=== PATIENT | male | born 1965 | race Caucasian/White ===

== ENCOUNTER 2021-09-01 17:41 | Inpatient (IN) ==
[2021-09-01] MEDS ORDERED: PANTOprazole 80 MG in DEXTROSE 5% 100 ML IV ONE (17:57)
[2021-09-01] MEDS ORDERED: PANTOprazole 80 MG in DEXTROSE 5% 100 ML IV STA (17:57)
[2021-09-01] MEDS ORDERED: PANTOPRAZOLE BOLUS/DRIP 1 EA IV STA (17:57)
--- NOTE | 2021-09-01 18:06 | Emergency Department Note ---
Impression & Plan Upper gastrointestinal hemorrhage, Melena, Anemia, Esophageal varices ED Provider Note NAME: RIP LYN AGE: 56 SEX: M : 1965 ARRIVES VIA: Ambulance INFORMANT: Patient, EMS ED PROVIDER(S): Billy Sosa DO CHIEF COMPLAINT: GI bleeding HPI: The patient is a 56-year-old male who has a history of cirrhosis of the li justice secondary to chronic alcohol use who presented to the emergency department for an evaluation of GI bleeding. The patient states he started having symptoms earlier in the day. He denies having any chest pain but does complain of epigastric pain and discomfort. He notices black stool but he also had multiple episodes of emesis which was positive for a maroon dark emesis. The patient denies having any fevers. He denies having any lower extremity swelling or pain. He states his symptoms were moderate to severe. The patient arrived via ALS. He was noted to be tachycardic but not hypotensive. The patient has never had a blood transfusion before. He states he is not been drinking alcohol and is currently in the work-up in process of being put on a transplant list for his liver failure. ROS: See above HPI for pertinent positives & negatives. A total of 10 systems reviewed and were otherwise negative. PAST MEDICAL HISTORY: See Below PAST SURGICAL HISTORY: See Below FAMILY HISTORY: See Below SOCIAL HISTORY: See Below HOME MEDICATIONS: See Below ALLERGIES: See Below VITALS: See Below PHYSICAL EXAMINATION: GENERAL: The patient is awake and alert. He is very anxious appearing and appears to be pale. EYES: The conjunctivae are pale. The pupils are round and reactive. EARS, NOSE, MOUTH AND THROAT: The nose is without any evidence of any deformity. NECK: The neck is nontender and supple. RESPIRATORY: Normal respiratory effort is noted there is no evidence of wheezing rhonchi or rales CARDIOVASCULAR: Regular rate and rhythm noted there no murmurs rubs or gallops normal S1 normal S2. GASTROINTESTINAL: Abdomen was soft and distended. There is diffuse tenderness to palpation but no guarding rigidity. Rectal exam revealed black stool which was strongly heme positive. MUSCULOSKELETAL/EXTREMITIES: There is no evidence of gross deformity full range of motion is noted in the hips and shoulders. SKIN: Trace pedal edema was noted bilaterally. Skin was cool and dry. NEUROLOGIC: Patient is awake alert and oriented x3 strength is symmetric p atellar reflexes are 2+ bilaterally MEDICAL DECISION MAKING: The patient is a 56-year-old male who presented to the emergency department for an evaluation of upper GI bleeding. The patient's noticed episodes of coffee- ground emesis as well as dark stool from below. The patient was treated with IV fluids and IV antiemetics. He was also treated with IV antibiotics and Protonix in the emergency department. He was reevaluated multiple times. Hemoglobin was not critical but was low compared to his previous. His INR was elevated from 1.3-1.6 today. I discussed the patient's laboratory and radiographic studies with him. I also discussed his case with the on-call supervisor [employer] as well as the on-call [facility] hospitalist. They have agreed to evaluate the patient for further management and disposition. Radiographic studies were ordered. Triage Nursing notes reviewed. Prior medical records reviewed Vital Signs: reviewed and remarkable for tachycardia. Differential diagnosis: Diverticulosis, AVM, coagulopathy, colitis, inflammatory bowel disease, malignancy, Vero-Masters tear, esophagitis, peptic ulcer disease, variceal bleed, gastritis, epistaxis, fissure, hemorrhoids, as well as other pathologies. ER treatment provided: See below Diagnostics interpreted by me: ECG: EKG was obtained in the emergency department. My interpretation is sinus tachycardia [address] segment depressions were noted. This was compared to a tracing from November 13, 2019. The ST segment abnormalities are new. Cardiac Monitoring: An order was placed for continuous cardiac monitoring. The monitor shows a rate of 97 bpm with sinus rhythm. Laboratory studies: As stated above and show below. Imaging studies: See below Consultation(s): I discussed this case with Dr. Fay on-call for gastroenterology. I discussed this case with Dr. Brown who is on-call for the [facility] hospitalist group. ED COURSE: Procedures: none Critical Care: I have personally spent greater than 55 minutes of critical care time in the direct management of this patient. This includes bedside care, interpretation of diagnostic studies, and testing, discussion with consultants, patient, and family members, and other required patient management activities. This 55 mi nutes is in excess of all separately billable procedures. Past Med/Surg History Medical History Anemia Back pain ARTHRITIS PER PT Chews tobacco Cirrhosis of liver Fluid retention LEGS AND ABDOMEN High blood pressure HX, CURRENTLY LOW BLOOD PRESSURE PER PT History of COVID-2020 Renal insufficiency Surgical History No history of previous surgery Social History Smoking Status: Former smoker Tobacco Type: Cigarettes Do You Dip or Chew Tobacco: No; Hx Alcohol Use: No Hx Substance Use: Yes Substance Use Type Other:: MEDICAL MARIJUANA CARD (INSTRUCTED TO BRING CARD/CURRENTLY ) Preferred Language: Georgian Communication Ability: Effective Forger Helper Required: No Beliefs That Will Affect Care: None Current Living Situation: Alone Other Information That Helps Us Care for You: No Feels Safe at Home: Yes Safety Concerns: Feels Safe At This Time Assistive Devices: Glasses Allergies Allergies Allergy/AdvReac Type Severity Reaction Status Date / Time No Known Allergies Allergy Verified 09/01/21 20:04 Home Meds Home Medications Medication Instructions Recorded Confirmed furosemide 40 mg tablet 40 mg PO DAILY 09/01/21 09/01/21 ibuprofen 200 mg tablet (Advil) 600 - 800 mg PO Q8 PRN 09/01/21 09/01/21 spironolactone 100 mg tablet 100 mg PO DAILY 09/01/21 09/01/21 Results & Data (ED) Vital Signs Vital Signs - 24 hr 09/01/21 17:51 Temperature 36.9 C Temperature Source Oral Pulse Rate 97 H Respiratory Rate 24 Respiratory Effort / Characteristics Non-Labored Spontaneous Respiratory Depth Normal Respiratory Pattern Regular Blood Pressure 125/85 Blood Pressure Mean 98 Blood Pressure Position Sitting Pulse Oximetry 98 Oxygen Delivery Method Room Air Sepsis Recent Fever Within 48 Hours No Sepsis New/Unexplained Change in Mental Status N/A Sepsis Action Taken by Nursing No Action Required Home Medications Current Medication List: was personally reviewed by me Laboratory Data Attestation: I reviewed the patient's lab results. Result diagrams: 09/02/21 10:09 09/02/21 10:09 Lab Results 09/01/21 09/01/21 Range/Units 18:02 18:30 SARS-CoV-2, RNA, NAAT NEGATIVE (NEGATIVE) Blood Type A Positive Antibody Screen NEGATIVE Crossmatch See Detail Administered Medications Octreotide Acetate 500 mcg/ (Dextrose) 100.5 mls @ 10.05 mls/hr IV .Q10H DARREN Stop: 10/01/21 19:59 Last Admin: 09/02/21 04:52 Dose: 50 mcg/hr, 10.1 mls/hr Documented by: [id number] Infusion: 09/02/21 04:52 Dose: 50 mcg/hr, 10.1 mls/hr Documented by: [id number] Admin: 09/01/21 21:05 Dose: 50 mcg/hr, 10.1 mls/hr Documented by: [id number] Pantoprazole Sodium 40 mg/ (Syringe) 10 mls @ 5 mls/min IV BID@0900,2100 DARREN Stop: 10/02/21 09:59 Last Admin: 09/02/21 11:11 Dose: 5 mls/min Documented by: [id number] Ondansetron HCl (Ondansetron Inj 2 Mg/Ml 2 Ml Vial) 4 mg IV Q6H PRN PRN Reason: Nausea Stop: 10/01/21 21:29 Last Admin: 09/01/21 21:27 Dose: 4 mg Documented by: [id number] Discontinued Medications Pantoprazole Sodium 80 mg/ (Dextrose) 100 mls @ 400 mls/hr IV ONE STA Stop: 09/01/21 18:11 Last Infusion: 09/01/21 19:29 Dose: 0 mls/hr Documented by: [id number] Admin: 09/01/21 18:28 Dose: 400 mls/hr Documented by: [id number] Pantoprazole Sodium (Protonix Bolus/Drip) 0 mls @ 1 mls/hr IV ONE STA Stop: 09/01/21 17:58 Last Infusion: 09/01/21 19:31 Dose: 0 mls/hr Documented by: [id number] Admin: 09/01/21 19:25 Dose: 1 mls/hr Documented by: [id number] Pantoprazole Sodium 40 mg/ (Dextrose) 100 mls @ 20 mls/hr IV Q5H DARREN Stop: 10/01/21 18:14 Last Infusion: 09/01/21 23:45 Dose: 0 mg/hr, 0 mls/hr Documented by: [id number] Admin: 09/01/21 23:14 Dose: 8 mg/hr, 20 mls/hr Documented by: [id number] Infusion: 09/01/21 23:14 Dose: 8 mg/hr, 20 mls/hr Documented by: [id number] Admin: 09/01/21 18:49 Dose: 8 mg/hr, 20 mls/hr Documented by: [id number] Piperacillin Sod/Tazobactam Sod (Zosyn) 4.5 gm in 120 mls @ 240 mls/hr IV NOW ONE Stop: 09/01/21 18:44 Last Infusion: 09/01/21 19:30 Dose: 0 mls/hr Documented by: [id number] Admin: 09/01/21 18:28 Dose: 240 mls/hr Documented by: [id number] Sodium Chloride (Nss 1000ml) 1,000 mls @ 999 mls/hr IV .Q1H1M ONE Stop: 09/01/21 19:45 Last Infusion: 09/01/21 20:12 Dose: 0 mls/hr Documented by: [id number] Admin: 09/01/21 19:24 Dose: 999 mls/hr Documented by: [id number] Octreotide Acetate 50 mcg/ (Syringe) 10 mls @ 3 mls/min IV NOW STA Stop: 09/01/21 20:53 Last Admin: 09/01/21 21:05 Dose: 3 mls/min Documented by: [id number] Piperacillin Sod/Tazobactam (Sod 3.375 gm/ Dextrose) 115 mls @ 28.75 mls/hr IV Q8H DARREN; Protocol Stop: 09/12/21 00:00 Last Admin: 09/02/21 08:22 Dose: 28.8 mls/hr Documented by: [id number] Infusion: 09/02/21 03:59 Dose: 0 mls/hr Documented by: [id number] Admin: 09/01/21 23:44 Dose: 28.8 mls/hr Documented by: [id number] Phytonadione 5 mg/ Dextrose 50.5 mls @ 101 mls/hr IV ONE ONE Stop: 09/01/21 21:44 Last Infusion: 09/01/21 22:00 Dose: 0 mls/hr Documented by: [id number] Admin: 09/01/21 21:22 Dose: 101 mls/hr Documented by: [id number] Magnesium Sulfate/Dextrose (Magnesium Sulfate / D5w) 1 gm in 100 mls @ 50 mls/hr IV Q2H DARREN Stop: 09/02/21 10:59 Last Admin: 09/02/21 10:10 Dose: 50 mls/hr Documented by: [id number] Infusion: 09/02/21 10:10 Dose: 50 mls/hr Documented by: [id number] Admin: 09/02/21 08:21 Dose: 50 mls/hr Documented by: [id number] Calcium Gluconate 2,000 mg/ (Dextrose) 70 mls @ 240 mls/hr IV NOW ONE Stop: 09/02/21 10:00 Last Admin: 09/02/21 10:10 Dose: 240 mls/hr Documented by: [id number] Ioversol (Optiray 320 100ml) 92 ml IV ONCE ONE Stop: 09/01/21 19:05 Last Admin: 09/01/21 19:04 Dose: 92 ml Documented by: [id number] Morphine Sulfate (Morphine Sulfate 4 Mg/Ml 1 Ml Carp\Vial) 4 mg IV NOW STA Stop: 09/01/21 18:59 Last Admin: 09/01/21 19:25 Dose: 4 mg Documented by: [id number] Ondansetron HCl (Ondansetron Inj 2 Mg/Ml 2 Ml Vial) 4 mg IV NOW STA Stop: 09/01/21 18:44 Last Admin: 09/01/21 19:25 Dose: 4 mg Documented by: [id number] Imaging Data Radiologist's Impression: Chest X-Ray 09/01/21 17:48 XR chest 1V portable CLINICAL HISTORY: GI bleed. Evaluate cardiopulmonary status. COMPARISON STUDY: 11/13/2019 TECHNIQUE: 1 view of the chest FINDINGS: Single frontal view of the chest demonstrates the cardiomediastinal silhouette to be within normal limits. The lungs are clear of alveolar opacities. There is no evidence for pleural effusion. There is no evidence for vascular congestion. There is no acute osseous pathology. IMPRESSION: 1. No acute cardiopulmonary disease. ACT 112: Negative or not required by law. Electronically signed by: Humberto Callejas M.D. 09/01/2021 7:03 PM Chest X-Ray 09/01/21 17:48 XR chest 1V portable CLINICAL HISTORY: GI bleed. Evaluate cardiopulmonary status. COMPARISON STUDY: 11/13/2019 TECHNIQUE: 1 view of the chest FINDINGS: Single frontal view of the chest demonstrates the cardiomediastinal silhouette to be within normal limits. The lungs are clear of alveolar opacities. There is no evidence for pleural effusion. There is no evidence for vascular congestion. There is no acute osseous pathology. IMPRESSION: 1. No acute cardiopulmonary disease. ACT 112: Negative or not required by law. Electronically signed by: Humberto Callejas M.D. 09/01/2021 7:03 PM Abdomen/Pelvis CT 09/01/21 18:36 CT abd pelvis IV con only CLINICAL HISTORY: GI bleed. Reported vomiting of blood COMPARISON STUDY: 11/13/2019 CT DOSE: 515.48 mGy.cm TECHNIQUE: Standard CT of the Abdomen and Pelvis was performed with IV contrast. A dose lowering technique was utilized adhering to the principles of ALARA. Contrast Volume: Optiray 320, 92 ml. The patient did not receive oral contrast. FINDINGS: Lung base: There has been interval development of a small right pleural effusion. Abdominal cavity and bowel: There is diffuse mucosal thickening present along the course of the entire colon from the cecum to the sigmoid colon. Mild pericolonic inflammatory changes are present throughout its course as well. Findings are characteristic of an infectious versus inflammatory colitis. There is no evidence for diverticula or diverticulitis. The stomach is grossly distended with liquid and food stuff. The fluid demonstrates increased attenuation most characteristic of active bleeding. The findings are characteristic of marked gastritis. Underlying ulcer cannot be excluded. The small bowel loops are normally placed within the abdomen and pelvis without evidence for dilatation or obstruction. There is a normal appendix in the right lower quadrant. There is no evidence for free air. There are now extensive gastric hilar varices. There is no gross ascites. Liver: The liver is again enlarged with a cirrhotic morphology. There is no evidence for enhancing mass lesion. Spleen: There is homogeneous attenuation of the splenic parenchyma. There is no enhancing mass lesion. There is now marked splenomegaly and splenic hilar varices. Pancreas: There is homogeneous attenuation of the pancreatic parenchyma. There is no evidence for mass lesion or peripancreatic fluid collection. Gall Bladder: The gallbladder is well distended with no evidence for intraluminal calculi, wall thickening or pericholecystic edema. Adrenal glands: The adrenal glands are normal in size and attenuation. There is no evidence for enhancing mass lesion. Kidneys: There is homogeneous attenuation of the renal parenchyma bilaterally. There is no evidence for renal calculus or hydronephrosis. There is no evidence for enhancing mass. Bladder: The bladder is within normal limits with no evidence for focal mass, calculus or diverticulum. : There is no evidence for pelvic mass or adenopathy. There is no evidence for pelvic ascites. Vasculature: There is no evidence for aneurysmal dilatation of the abdominal aorta. Atherosclerotic calcification is present. Osseous structures: There is no acute osseous pathology. Degenerative changes are seen within the spine. IMPRESSION: 1. Small right pleural effusion. 2. Diffuse mucosal thickening of the colon with pericolonic inflammatory changes characteristic of an infectious or inflammatory colitis. There is no evidence for diverticula or diverticulitis. 3. Marked distention of the stomach with liquid and food stuff. Increased attenuation fluid is present characteristic of active bleeding. The findings are characteristic of gastritis. Underlying ulcer cannot be excluded. 4. Cirrhosis of the liver, marked splenomegaly and marked gastric hilar and splenic varices. ACT 112: Negative or not required by law. Electronically signed by: Humberto Callejas M.D. 09/01/2021 7:32 PM Discharge Plan Visit Data Chief Complaint: GI Bleed ED Provider: Billy Sosa Discharge Problem: Upper gastrointestinal hemorrhage, Melena, Anemia, Esophageal varices Patient Disposition: Admitted As Inpatient Discharge Instructions Interventions: ED Discharge Assessment Last Done: 09/01/21 20:52 Discharge Problem: Anemia Qualifiers: Anemia type: unspecified type Qualified Code(s): D64.9 - Anemia, unspecified Esophageal varices Qualifiers: Esophageal varices type: unspecified type Esophageal varices bleeding: with bleeding Qualified Code(s): I85.01 - Esophageal varices with bleeding
[2021-09-01 18:12] LABS: Hematocrit (blood only) 27.3 % (42-52); Hemoglobin 9.3 g/dL (14.0-18.0); Mean Corpuscular Hemoglobin 33.2 pg (25-34); Mean Corpuscular Hgb Conc 34.1 g/dL (32-36); Mean Corpuscular Volume 97.5 fL (80-100); Mean Platelet Volume 10.9 fL (7.4-10.4); Platelet Count 206 K/uL (130-400); RDW Coefficient of Variation 16.7 % (11.5-14.5); RDW Standard Deviation 59.1 fL (36.4-46.3); White Blood Count 17.44 K/uL (4.8-10.8)
[2021-09-01] MEDS ORDERED: PIPERACILLIN/TAZOBACTAM 4.5 GM/120 ML BAG IV ONE (18:15)
[2021-09-01 18:31] LABS: Acanthocytes 1+; Basophils # (auto) 0.01 K/uL (0-0.2); Basophils % (auto) 0.1 %; Echinocytes 1+; Eosinophils # (auto) 0.01 K/uL (0-0.5); Eosinophils % (auto) 0.1 %; Immature Granulocytes % (auto) 0.6 %; Lymphocytes # (auto) 0.97 K/uL (1.2-3.4); Lymphocytes % (auto) 5.6 %; Monocytes # (auto) 0.66 K/uL (0.11-0.59); Monocytes % (auto) 3.8 %; Neutrophils # (auto) 15.69 K/uL (1.4-6.5); Neutrophils % (auto) 89.8 %; Ovalocytes 1+
[2021-09-01 18:33] LABS: INR 1.6 (0.9-1.1); Partial Thromboplastin Time 27.9 Seconds (21.0-31.0); Prothrombin Time 16.7 Seconds (9.0-12.0)
[2021-09-01 18:37] LABS: Albumin Globulin Ratio 0.9 (0.9-2); Albumin Level 3.3 gm/dl (3.4-5.0); Bilirubin,Total 4.6 mg/dl (0.2-1.0); Calcium 8.8 mg/dl (8.5-10.1); Creatinine Clr Calc Pharmacy 61.1 ml/min; Est GFR (African American) 56.7 ml/min; Est GFR (Non-African American) 48.9 ml/min; Globulin 3.5 gm/dl (2.5-4.0); Potassium 3.8 mmol/L (3.5-5.1); Total Protein 6.8 gm/dl (6.0-8.3)
[2021-09-01 18:39] LABS: Troponin I High Sensitivity 31.5 pg/ml (0-20)
[2021-09-01] MEDS ORDERED: ONDANSETRON INJ 2 MG/ML 2 ML VIAL IV STA (18:43)
[2021-09-01] MEDS ORDERED: SODIUM CHLORIDE 0.9% 1000ML 1,000 ML IV ONE (18:45)
[2021-09-01] MEDS: PANTOprazole 40 MG in DEXTROSE 5% 100 ML IV SCH ×2 (18:49→23:14)
[2021-09-01] MEDS ORDERED: MoRPHine SULFATE 4 MG/ML 1 ML CARP\\VIAL IV PRN (18:58)
[2021-09-01] MEDS ORDERED: MoRPHine SULFATE 4 MG/ML 1 ML CARP\\VIAL IV STA (18:58)
[2021-09-01] MEDS ORDERED: OPTIRAY 320 100ml IV ONE (19:04)
--- NOTE | 2021-09-01 19:04 | History & Physical Report ---
Date of Service September 01, 2021 Assessment & Plan (1) Upper gastrointestinal hemorrhage: Plan: UGI bleed acute active - Protonix bolus and drip - Octreotide bolus and drip - Recommendations from GI - place NGT - HGB level now - PRBC on hold - INR 1.6, fibrinogen added, platelet count 206 - Vitamin K 5mg IV redose if needed - FFP x 1 unit ordered - on no other blood thinners - Blatchford score 12 - Maintain at least 2 large bore IV - Airway control if vomiting occurs (2) Esophageal varices: Plan: As above - octreotide added - Continue Zosyn- can change to Rocephin (3) Cirrhosis: Plan: MELD 22 Child GORE 8 without encephalopathy hold diuretics at this time until hemodynamics proven with active bleeding - glucose checks AC/HS - hypoglycemic protocol - blood cultures History of Present Illness Primary Care Provider: MARTHA PCP 56 YOM with medical history of : Cirrhosis secondary to alcohol abuse, patient has been sober for > 1 year. Patient previously followed with [facility] for GI for workup for liver transplant. Patient has not had a EGD yet, but had Colonoscopy performed on . Patient comes in to the EMD today for onset of abdominal pain with vomiting of blood at ~ 0300 this morning and passing of some black stools as the day went on. The patient came to the EMD today via EMS. In the EMD the patient had routine blood work performed, type and cross performed, and CT of the abdomen and pelvis performed. His HGB level is 9.3- no recent level for comparison. He is complaining as well as severe abdominal pain from the umbilicus to epigastrium, but abdomen is soft. His CT scan is concerning for stomach distention with liquid and food stuff, likely consistent with active bleeding and gastritis without being able to exclude an ulceration, as well as marked gastric hilar and splenic varices. Dr. Fay has been in contact with multiple times with review of the imaging as well. Patient is currently on Protonix drip and bolus and will add octreotide on. Patient will be admitted to the ICU, we have multple units of blood products that are on hold for the patient. Will Keep NPO, recommendations from GI to place NGT, will place bah catheter. COVID test on admission is: NEGATIVE Allergies Allergy/AdvReac Type Severity Reaction Status Date / Time No Known Allergies Allergy Verified 09/01/21 20:04 Home Medications Medication Instructions Recorded Confirmed Type furosemide 40 mg tablet 40 mg PO DAILY 09/01/21 09/01/21 History ibuprofen 200 mg tablet (Advil) 600 - 800 mg PO Q8 PRN 09/01/21 09/01/21 History spironolactone 100 mg tablet 100 mg PO DAILY 09/01/21 09/01/21 History Past Med/Surg History Medical History Anemia Back pain ARTHRITIS PER PT Chews tobacco Cirrhosis of liver Fluid retention LEGS AND ABDOMEN High blood pressure HX, CURRENTLY LOW BLOOD PRESSURE PER PT History of COVID-2020 Renal insufficiency Surgical History No history of previous surgery Social History Smoking Status: Former smoker Tobacco Type: Cigarettes Do You Dip or Chew Tobacco: No; Hx Alcohol Use: No Hx Substance Use: Yes Substance Use Type Other:: MEDICAL MARIJUANA CARD (INSTRUCTED TO BRING CARD/CURRENTLY ) Preferred Language: Libyan Communication Ability: Effective Continuous Process Coffee Roaster Required: No Beliefs That Will Affect Care: None Current Living Situation: Alone Other Information That Helps Us Care for You: No Feels Safe at Home: Yes Safety Concerns: Feels Safe At This Time Assistive Devices: Glasses Review of Systems Review of Systems: REVIEW OF SYSTEMS: Constitutional: (+) chills, No fever, Eyes: No diplopia, no worsening or blurred vision ENT: normal hearing, no trouble swallowing Respiratory: No cough, sputum, dyspnea at rest or on exertion Cardiovascular: No chest pain, tightness or palpitations Abdomen: (+) abdominal pain, nausea, vomiting earlier in the day, NO diarrhea or constipation Musculoskeletal: No joint pain, calf pain, swelling Neurologic: No weakness, numbness/tingling, or balance problems Psychiatric: No anxiety or depression Skin: No rash or itch Physical Exam Physical Exam: PHYSICAL EXAM: General: awake, alert, Head: Normocephalic, atraumatic ENT: PERRL, EOMI, no pharyngeal exudate, mucous membranes dry Neuro: AAO x 3, speech clear and appropriate, strength intact bilaterally 5/5, sensation intact and equal all extremities and dermatomes, no pronator drift Chest: equal rise and fall of the chest, no accessory muscle use, no heaves or thrills, Clear to auscultation, on room air, Cardiac: Regular rate and rhythm, telemetry reviewed-NSR no ectopy, skin warm dry, cap refill 3 seconds, peripheral pulses +2 no JVD, no murmur, peripheral pulses strong GI: hyperactive bowel sounds, tenderness with deep palpation to left lower quad, epgastrum sof t and no pain with deep palpation : Spontaneously voiding, no pain, no CVA tenderness,- place bah Extremities: Normal inspection, no peripheral edema or erythema, calfs nontender to palpation Psych: Normal mood and affect Skin: no rash or erythema Results & Data Results & Data ([facility]) Vital Signs (Past 12 Hours) Vital Signs Temp Pulse Resp BP Pulse Ox 09/01/21 17:51 36.9 C 97 H 24 125/85 98 Laboratory Results Laboratory Results - last 24 hr 09/01/21 09/01/21 09/01/21 18:02 18:30 Unknown WBC 17.44 H RBC 2.80 L Hgb 9.3 L Hct 27.3 L MCV 97.5 MCH 33.2 MCHC 34.1 RDW Std Deviation 59.1 H RDW Coeff of Diane 16.7 H Plt Count 206 MPV 10.9 H Immature Gran % (Auto) 0.6 Neut % (Auto) 89.8 Lymph % (Auto) 5.6 Troup % (Auto) 3.8 Eos % (Auto) 0.1 Baso % (Auto) 0.1 Neut # (Auto) 15.69 H Lymph # (Auto) 0.97 L Troup # (Auto) 0.66 H Eos # (Auto) 0.01 Baso # (Auto) 0.01 Immature Gran # (Auto) 0.10 H Ovalocytes 1+ Echinocytes 1+ Acanthocytes (Spur) 1+ PT INR APTT PTT Ratio Sodium Potassium Chloride Carbon Dioxide Anion Gap BUN Creatinine Est Cr Clr Drug Dosing Est GFR ( Amer) Est GFR (Non-Af Amer) BUN/Creatinine Ratio Glucose Calcium Total Bilirubin AST ALT Alkaline Phosphatase Troponin I High Sens Total Protein Albumin Globulin Albumin/Globulin Ratio Lipase SARS-CoV-2, RNA, NAAT NEGATIVE Blood Type A Positive Antibody Screen NEGATIVE Crossmatch See Detail 09/01/21 09/01/21 Unknown Unknown WBC RBC Hgb Hct MCV MCH MCHC RDW Std Deviation RDW Coeff of Diane Plt Count MPV Immature Gran % (Auto) Neut % (Auto) Lymph % (Auto) Troup % (Auto) Eos % (Auto) Baso % (Auto) Neut # (Auto) Lymph # (Auto) Troup # (Auto) Eos # (Auto) Baso # (Auto) Immature Gran # (Auto) Ovalocytes Echinocytes Acanthocytes (Spur) PT 16.7 H INR 1.6 H APTT 27.9 PTT Ratio 1.0 Sodium 137 Potassium 3.8 Chloride 99 Carbon Dioxide 12 L Anion Gap 26 H BUN 39 H Creatinine 1.56 H Est Cr Clr Drug Dosing 61.1 Est GFR ( Amer) 56.7 Est GFR (Non-Af Amer) 48.9 BUN/Creatinine Ratio 25.0 H Glucose 191 H Calcium 8.8 Total Bilirubin 4.6 H AST 30 ALT 19 Alkaline Phosphatase 76 Troponin I High Sens 31.5 H Total Protein 6.8 Albumin 3.3 L Globulin 3.5 Albumin/Globulin Ratio 0.9 Lipase 20 SARS-CoV-2, RNA, NAAT Blood Type Antibody Screen Crossmatch Diagnostic Findings Chest X-Ray 09/01/21 17:48 XR chest 1V portable CLINICAL HISTORY: GI bleed. Evaluate cardiopulmonary status. COMPARISON STUDY: 11/13/2019 TECHNIQUE: 1 view of the chest FINDINGS: Single frontal view of the chest demonstrates the cardiomediastinal silhouette to be within normal limits. The lungs are clear of alveolar opacities. There is no evidence for pleural effusion. There is no evidence for vascular congestion. There is no acute osseous pathology. IMPRESSION: 1. No acute cardiopulmonary disease. ACT 112: Negative or not required by law. Electronically signed by: Humberto Callejas M.D. 09/01/2021 7:03 PM Abdomen/Pelvis CT 09/01/21 18:36 CT abd pelvis IV con only CLINICAL HISTORY: GI bleed. Reported vomiting of blood COMPARISON STUDY: 11/13/2019 CT DOSE: 515.48 mGy.cm TECHNIQUE: Standard CT of the Abdomen and Pelvis was performed with IV contrast. A dose lowering technique was utilized adhering to the principles of ALARA. Contrast Volume: Optiray 320, 92 ml. The patient did not receive oral contrast. FINDINGS: Lung base: There has been interval development of a small right pleural effusion. Abdominal cavity and bowel: There is diffuse mucosal thickening present along the course of the entire colon from the cecum to the sigmoid colon. Mild pericolonic inflammatory changes are present throughout its course as well. Findings are characteristic of an infectious versus inflammatory colitis. There is no evidence for diverticula or diverticulitis. The stomach is grossly distended with liquid and food stuff. The fluid demonstrates increased attenuation most characteristic of active bleeding. The findings are characteristic of marked gastritis. Underlying ulcer cannot be excluded. The small bowel loops are normally placed within the abdomen and pelvis without evidence for dilatation or obstruction. There is a normal appendix in the right lower quadrant. There is no evidence for free air. There are now extensive gastric hilar varices. There is no gross ascites. Liver: The liver is again enlarged with a cirrhotic morphology. There is no evidence for enhancing mass lesion. Spleen: There is homogeneous attenuation of the splenic parenchyma. There is no enhancing mass lesion. There is now marked splenomegaly and splenic hilar varices. Pancreas: There is homogeneous attenuation of the pancreatic parenchyma. There is no evidence for mass lesion or peripancreatic fluid collection. Gall Bladder: The gallbladder is well distended with no evidence for intraluminal calculi, wall thickening or pericholecystic edema. Adrenal glands: The adrenal glands are normal in size and attenuation. There is no evidence for enhancing mass lesion. Kidneys: There is homogeneous attenuation of the renal parenchyma bilaterally. There is no evidence for renal calculus or hydronephrosis. There is no evidence for enhancing mass. Bladder: The bladder is within normal limits with no evidence for focal mass, calculus or diverticulum. : There is no evidence for pelvic mass or adenopathy. There is no evidence for pelvic ascites. Vasculature: There is no evidence for aneurysmal dilatation of the abdominal aorta. Atherosclerotic calcification is present. Osseous structures: There is no acute osseous pathology. Degenerative changes are seen within the spine. IMPRESSION: 1. Small right pleural effusion. 2. Diffuse mucosal thickening of the colon with pericolonic inflammatory changes characteristic of an infectious or inflammatory colitis. There is no evidence for diverticula or diverticulitis. 3. Marked distention of the stomach with liquid and food stuff. Increased attenuation fluid is present characteristic of active bleeding. The findings are characteristic of gastritis. Underlying ulcer cannot be excluded. 4. Cirrhosis of the liver, marked splenomegaly and marked gastric hilar and splenic varices. ACT 112: Negative or not required by law. Electronically signed by: Humberto Callejas M.D. 09/01/2021 7:32 PM Medications Administered Home Medications furosemide 40 mg tablet 40 mg PO DAILY 09/01/21 [History Confirmed 09/01/21] ibuprofen 200 mg tablet (Advil) 600 - 800 mg PO Q8 PRN 09/01/21 [History Confirmed 09/01/21] spironolactone 100 mg tablet 100 mg PO DAILY 09/01/21 [History Confirmed 09/01/21] Active Medications Pantoprazole Sodium 40 mg/ (Dextrose) 100 mls @ 20 mls/hr IV Q5H DARREN Stop: 10/01/21 18:14 Last Admin: 09/01/21 18:49 Dose: 8 mg/hr, 20 mls/hr Documented by: Sodium Chloride (Nss) 250 mls @ 15 mls/hr IV .[id number] PRN PRN Reason: For Transfusion Stop: 09/02/21 05:40 Octreotide Acetate 50 mcg/ (Syringe) 10 mls @ 3 mls/min IV ONE STA Stop: 09/01/21 19:51 Octreotide Acetate 500 mcg/ (Dextrose) 100.5 mls @ 10.05 mls/hr IV .Q10H DARREN Stop: 10/01/21 19:59 Miscellaneous (Stat Iv) 1 ea N/A NOW STA Stop: 09/01/21 19:49 Morphine Sulfate (Morphine Sulfate 4 Mg/Ml 1 Ml Carp\Vial) 4 mg IV Q30M PRN PRN Reason: Pain Stop: 09/15/21 18:57 Pantoprazole Sodium 40 mg/ (Dextrose) 100 mls @ 20 mls/hr IV Q5H DARREN Stop: 10/01/21 18:14 Last Admin: 09/01/21 18:49 Dose: 8 mg/hr, 20 mls/hr Documented by: [id number] Discontinued Medications Pantoprazole Sodium 80 mg/ (Dextrose) 100 mls @ 400 mls/hr IV ONE STA Stop: 09/01/21 18:11 Last Infusion: 09/01/21 19:29 Dose: 0 mls/hr Documented by: [id number] Admin: 09/01/21 18:28 Dose: 400 mls/hr Documented by: [id number] Pantoprazole Sodium (Protonix Bolus/Drip) 0 mls @ 1 mls/hr IV ONE STA Stop: 09/01/21 17:58 Last Infusion: 09/01/21 19:31 Dose: 0 mls/hr Documented by: [id number] Admin: 09/01/21 19:25 Dose: 1 mls/hr Documented by: [id number] Piperacillin Sod/Tazobactam Sod (Zosyn) 4.5 gm in 120 mls @ 240 mls/hr IV NOW ONE Stop: 09/01/21 18:44 Last Infusion: 09/01/21 19:30 Dose: 0 mls/hr Documented by: [id number] Admin: 09/01/21 18:28 Dose: 240 mls/hr Documented by: [id number] Sodium Chloride (Nss 1000ml) 1,000 mls @ 999 mls/hr IV .Q1H1M ONE Stop: 09/01/21 19:45 Last Admin: 09/01/21 19:24 Dose: 999 mls/hr Documented by: [id number] Ioversol (Optiray 320 100ml) 92 ml IV ONCE ONE Stop: 09/01/21 19:05 Last Admin: 09/01/21 19:04 Dose: 92 ml Documented by: [id number] Morphine Sulfate (Morphine Sulfate 4 Mg/Ml 1 Ml Carp\Vial) 4 mg IV NOW STA Stop: 09/01/21 18:59 Last Admin: 09/01/21 19:25 Dose: 4 mg Documented by: [id number] Ondansetron HCl (Ondansetron Inj 2 Mg/Ml 2 Ml Vial) 4 mg IV NOW STA Stop: 09/01/21 18:44 Last Admin: 09/01/21 19:25 Dose: 4 mg Documented by: [id number] ECG Additional Comments: EKG needs obtained Code Status & VTE Plan Code Status CODE: FULL VTE: SCDS, chemoprophylaxis on hold VTE Prophylaxis Plan VTE Prophylaxis will be ordered: Yes Supervising Physician Co-Signing Physician Notes Patient seen and examined, chart reviewed, case discussed with AMANDA Le and I agree with the assessment and plan as above. In brief, patient is a 56yo male with history of liver cirrhosis secondary to EtOH presenting with UGIB - hematemesis and coffee ground emesis. Patient had large volume of emesis in ER. Pale in appearance but remained HD stable On exam he is afebrile, tachycardic Skin - pale, no rash HEENT - MMM, Neck supple Heart - +S1/S2, regular, tachycardic, no m/r/g Lungs - CTA Abd - soft, NT/ND Ext - warm, well perfused Labs and images reviewed. Assessment/Plan - UGIB in patient with liver disease, unknown if varices - no h/o EGD in past -Admit to MICU -Maintain 2 large bore PIVs -Protonix gtt -Octreotide gtt -Monitor H/H - transfuse for ongoing bleed, symptomatic anemia, hgb <7 -Coagulopathy reversal in liver disease - Vitamin K 5mg IV x 1, FFP x 1 unit -GI consultation appreciated PG Care Time/CCT Total # of Minutes Spent Total Time Spent with Patient: Total time spent is greater than 50% in coordination of care (as documented) at patient's floor/unit and/or counseling patient: Coding Level of Care Code 70956 Initial Inpt Care Lvl 3 Diagnoses Upper gastrointestinal hemorrhage K92.2 Esophageal varices I85.01 Esophageal varices bleeding: with bleeding Esophageal varices type: unspecified type Cirrhosis K74.60 (1) Esophageal varices Esophageal varices bleeding: with bleeding Esophageal varices type: uns pecified type Qualified Code(s): I85.01 - Esophageal varices with bleeding
--- NOTE | 2021-09-01 19:34 | CT Scan Report ---
CT abd pelvis IV con only CLINICAL HISTORY: GI bleed. Reported vomiting of blood COMPARISON STUDY: 11/13/2019 CT DOSE: 515.48 mGy.cm TECHNIQUE: Standard CT of the Abdomen and Pelvis was performed with IV contrast. A dose lowering nurys hnique was utilized adhering to the principles of ALARA. Contrast Volume: Optiray 320, 92 ml. The patient did not receive oral contrast. FINDINGS: Lung base: There has been interval development of a small right pleural effusion. Abdominal cavity and bowel: There is diffuse mucosal thickening present along the course of the entir e colon from the cecum to the sigmoid colon. Mild pericolonic inflammatory changes are present throug hout its course as well. Findings are characteristic of an infectious versus inflammatory colitis. Th ere is no evidence for diverticula or diverticulitis. The stomach is grossly distended with liquid and food stuff. The fluid demonstrates increased attenua tion most characteristic of active bleeding. The findings are characteristic of marked gastritis. Und erlying ulcer cannot be excluded. The small bowel loops are normally placed within the abdomen and pelvis without evidence for dilatati on or obstruction. There is a normal appendix in the right lower quadrant. There is no evidence for f ree air. There are now extensive gastric hilar varices. There is no gross ascites. Liver: The liver is again enlarged with a cirrhotic morphology. There is no evidence for enhancing ma ss lesion. Spleen: There is homogeneous attenuation of the splenic parenchyma. There is no enhancing mass lesion . There is now marked splenomegaly and splenic hilar varices. Pancreas: There is homogeneous attenuation of the pancreatic parenchyma. There is no evidence for mas s lesion or peripancreatic fluid collection. Gall Bladder: The gallbladder is well distended with no evidence for intraluminal calculi, wall thick ening or pericholecystic edema. Adrenal glands: The adrenal glands are normal in size and attenuation. There is no evidence for enhan cing mass lesion. Kidneys: There is homogeneous attenuation of the renal parenchyma bilaterally. There is no evidence f or renal calculus or hydronephrosis. There is no evidence for enhancing mass. Bladder: The bladder is within normal limits with no evidence for focal mass, calculus or diverticulu m. : There is no evidence for pelvic mass or adenopathy. There is no evidence for pelvic ascites. Vasculature: There is no evidence for aneurysmal dilatation of the abdominal aorta. Atherosclerotic c alcification is present. Osseous structures: There is no acute osseous pathology. Degenerative changes are seen within the spi ne. IMPRESSION: 1. Small right pleural effusion. 2. Diffuse mucosal thickening of the colon with pericolonic inflammatory changes characteristic of an infectious or inflammatory colitis. There is no evidence for diverticula or diverticulitis. 3. Marked distention of the stomach with liquid and food stuff. Increased attenuation fluid is presen t characteristic of active bleeding. The findings are characteristic of gastritis. Underlying ulcer c annot be excluded. 4. Cirrhosis of the liver, marked splenomegaly and marked gastric hilar and splenic varices. ACT 112: Negative or not required by law. Electronically signed by: Humberto Callejas M.D. 09/01/2021 7:32 PM
[2021-09-01] MEDS ORDERED: SODIUM CHLORIDE 0.9% 250 ML IV PRN ×3 (19:40→21:01)
[2021-09-01] MEDS ORDERED: STAT IV STA (19:48)
[2021-09-01] MEDS ORDERED: OCTREOTIDE ACETATE 50 MCG in SYRINGE 9.5 ML IV STA (20:50)
[2021-09-01] MEDS ORDERED: GLUCOSE 40% GEL 15 GM TUBE PO PRN (21:01)
[2021-09-01] MEDS ORDERED: GLUCOSE 10 TABS/TUBE PO PRN (21:01)
[2021-09-01] MEDS ORDERED: CARBOHYDRATES FOR HYPOGLYCEMIA PO PRN (21:01)
[2021-09-01] MEDS ORDERED: ACETAMINOPHEN 325 MG TAB PO PRN (21:01)
[2021-09-01] MEDS ORDERED: DEXTROSE 50% 50 ML SYRINGE IV PRN (21:01)
[2021-09-01] MEDS ORDERED: GLUCAGON FOR INJ 1 MG VIAL SQ PRN (21:01)
[2021-09-01] MEDS: OCTREOTIDE ACETATE 500 MCG in DEXTROSE 5% 100 ML IV SCH (21:05)
[2021-09-01] MEDS ORDERED: PHYTONADIONE 5 MG in DEXTROSE 5% 50 ML IV ONE (21:15)
[2021-09-01] MEDS ORDERED: ONDANSETRON INJ 2 MG/ML 2 ML VIAL IV PRN ×2 (21:19→21:53)
--- NOTE | 2021-09-01 21:19 | Critical Care Consultation ---
Date of Consultation September 01, 2021 Assessment & Plan (1) Upper gastrointestinal hemorrhage: Impression: 56-year-old male with history of liver cirrhosis and varices presents to the ICU with active upper GI bleed and plan to undergo blood transfusion and emergent EGD this evening. Neuro - [facility] ICU: Negative Cardiac - Currently hemodynamically stable and normal sinus rhythm. Per conversation it appears the patient was having orthostatic syncope. Suspect this is likely from volume loss due to upper GI bleed. Currently transfusing 2 units RBCs and 1 FFP Continue hemodynamic monitoring in ICU. Continuous monitor on telemetry Respiratory - Lungs clear to auscultation. No history of pulmonary disease. Continuous monitoring pulse ox GI - Upper GI hemorrhageunsure of source at this time as patient has history of cirrhosis and varices -Continue Protonix and octreotide drip -Patient undergoing emergent EGD with GI this evening. Follow-up findings -NG tube to low intermittent wall suction -See transfusions below Cirrhosis/liver failure meld of 22. No encephalopathy -Follows with [facility] liver service. Currently undergoing work-up for liver transplant -Follow-up with GI for recommendations -Trend LFTs -Hold diuretics for now -Monitor RENAL/LYTES - Creatinine stable, monitor routine BMPs replete electrolytes as indicated - Foleystrict I's and O's ENDO - No history of diabetes or thyroid disease ICU hyperglycemic protocol HEME - Acute blood loss anemialikely blood loss anemia in setting of acute GI bleed. May also have chronic element in the setting of liver failure. -We will transfuse 2 units RBCs and 1 FFP as patient has continued to display active upper GI bleed with hematemesis. Also elevated INR of 1.6. Did receive 5 mg IV vitamin K -Trend H&H and transfuse as indicated. Follow-up fibrinogen and INR ID - Empiric coverage with Zosyn No clear indication for infectious process at this time. Trend fever curve LINES/IV ACCESS - Bilateral large-bore IVs x2 DVT PROPHYLAXIS - SCDs, hold on anticoagulation in the setting of active bleeding Thank you for allowing us to participate in the care of this patient. Please refer to my attending physician's documentation for any further recommendations. (2) Cirrhosis: (3) Anemia: (4) Renal insufficiency: (5) Melena: (6) Esophageal varices: (7) Alcoholic liver failure: (8) Acute blood loss anemia: History of Present Illness Attending Physician: Fidel Brown MD History of Present Illness Mr. Jacob is a 56-year-old male with past medical history significant for cirrhosis secondary to alcohol abuse for which she has sustained per alcohol for approximately 1 year. He has been followed with [facility] for liver service and work-up for liver transplant. He was recently supposed to go for colonoscopy and EGD but did not undergo EGD yet. He presented to the emergency department earlier this evening with complaints of abdominal pain and hematemesis and dark stools. Hemoglobin was 9.3. He underwent CT abdomen and pelvis which was concerning for stomach distention with liquid as well asGastric hilar and splenic varices. Patient was hemodynamically stable and was going to be admitted to ICU for observation per GI, however had episode of vomiting of maroon blood like emesis which appeared to be a significant volume. GI was notified and patient is going for emergent EGD this evening. Patient arrived to the ICU alert and oriented and appears comfortable at rest. He is currently complaining of epigastric pain without other symptoms. Patient did state that he experienced dizziness with standing earlier today but did not fall. He currently denies syncope, headache, recent illness or fevers, sore throat or congestion, cough, shortness of breath, chest pain or palpitations, diarrhea, nausea. NG tube inserted per GI request. He has bilateral 18-gauge's and is receiving 2 units RBCs and 1 unit FFP. He also received 5 mg IV vitamin K in the ED. Plan for patient to undergo emergent EGD this evening and be readmitted to ICU for further management. Allergies Allergy/AdvReac Type Severity Reaction Status Date / Time No Known Allergies Allergy Verified 09/01/21 20:04 Home Medications Medication Instructions Recorded Confirmed Type furosemide 40 mg tablet 40 mg PO DAILY 09/01/21 09/01/21 History ibuprofen 200 mg tablet (Advil) 600 - 800 mg PO Q8 PRN 09/01/21 09/01/21 History spironolactone 100 mg tablet 100 mg PO DAILY 09/01/21 09/01/21 History Patient History Medical History Anemia Back pain ARTHRITIS PER PT Chews tobacco Cirrhosis of liver Fluid retention LEGS AND ABDOMEN High blood pressure HX, CURRENTLY LOW BLOOD PRESSURE PER PT History of COVID-19 2021 Renal insufficiency Surgical History No history of previous surgery Social History Smoking Status: Former smoker Tobacco Type: Cigarettes Cigarettes Per Day: 1 PACK/WEEK, CHEW TOBACCO EVERYDAY, CIGARS SOME DAYS; Hx Alcohol Use: No Hx Substance Use: Yes Substance Use Type Other:: MEDICAL MARIJUANA CARD (INSTRUCTED TO BRING CARD/CURRENTLY ) Preferred Language: Kazakh Communication Ability: Effective Carpet Binder Required: No Beliefs That Will Affect Care: None Current Living Situation: Alone Feels Safe at Home: Yes Assistive Devices: Glasses Review of Systems Review of Systems: All systems reviewed & are unremarkable except as noted in HPI & below Physical Exam Constitutional: cooperative and comfortable Eyes: PERRL, conjunctivae normal, anicteric sclerae ENMT: external ear and nose normal, oropharynx normal Neck: trachea midline, no thyromegaly Respiratory: normal respiratory effort, lungs clear to auscultation Cardiovascular: RRR, no murmur, no edema Heart Sounds: normal S1 and normal S2; no murmur Vessels: no JVD Extremities: normal capillary refill; no edema Gastrointestinal (Abdomen): Abdomen tender to palpation in epigastric region. Abdomen soft nondistended. NG tube with dark blood like gastric drainage. Skin: no rashes, warm and dry Neurologic: PERRL, EOMI, accommodation nl, no face palsy, no dysarthria Psychiatric: A+Ox3, euthymic affect Results & Data Results & Data ([facility]) Vital Signs (Past 12 Hours) Vital Signs Temp Pulse Pulse Resp BP BP Pulse Ox 09/01/21 19:28 36.8 C 95 H 18 155/83 H 100 09/01/21 17:51 36.9 C 97 H 24 125/85 98 Coding Level of Care Code 54940 Inpt Consult Level 4 Diagnoses Cirrhosis K74.60 Anemia D64.9 Renal insufficiency N28.9 Upper gastrointestinal hemorrhage K92.2 Melena K92.1 Esophageal varices I85.01 Esophageal varices bleeding: with bleeding Esophageal varices type: unspecified type Alcoholic liver failure K70.40 Acute blood loss anemia D62 (1) Esophageal varices Esophageal varices bleeding: with bleeding Esophageal varices type: unspecified type Qualified Code(s): I85.01 - Esophageal varices with bleeding
[2021-09-01] MEDS ORDERED: ROCURONIUM BROMIDE 10 MG/ML 5 ML VIAL IV ONE (21:30)
[2021-09-01] MEDS ORDERED: SUCCINYLCHOLINE CHLORIDE 20 MG/ML 10 ML VIAL IV ONE (21:30)
[2021-09-01] MEDS ORDERED: LIDOCAINE 2% 2 ML VIAL/AMP(20MG/ML) INFIL ONE (21:30)
[2021-09-01] MEDS ORDERED: PROPOFOL IV EMULSION 10 MG/ML 20 ML VIAL IV ONE (21:30)
[2021-09-01] MEDS ORDERED: fentaNYL citrate 100 MCG/2 ML VIAL ONE (21:30)
[2021-09-01] MEDS ORDERED: ONDANSETRON INJ 2 MG/ML 2 ML VIAL ONE (21:31)
--- NOTE | 2021-09-01 21:41 | Anesthesiology Consultation ---
Date of Service September 01, 2021 Assessment & Plan (1) Encounter for pre-operative examination: Chart Review Chart Review: Acceptable Risk for Surgery (emergency procedure) and Patient NOT seen in Pre Admission Testing Consults Requested none History Surgery Operation Date: 09/01/21 21:10 Proposed Procedures p Esophagogastroduodenoscopy Dr Fay - Aidan Fay Height/Weight Height: 5 ft 11 in Weight: 91.2 kg Allergies Allergy/AdvReac Type Severity Reaction Status Date / Time No Known Allergies Allergy Verified 09/01/21 20:04 Medications Home Medications Medication Instructions Recorded Confirmed Last Taken furosemide 40 mg tablet 40 mg PO DAILY 09/01/21 09/01/21 08/31/21 ibuprofen 200 mg tablet (Advil) 600 - 800 mg PO Q8 PRN 09/01/21 09/01/21 Unknown spironolactone 100 mg tablet 100 mg PO DAILY 09/01/21 09/01/21 08/31/21 Active Medications Generic Name Dose Route Start Last Admin Trade Name Freq PRN Reason Stop Dose Admin Pantoprazole Sodium 40 mg/ 100 mls @ 20 mls/hr 09/01/21 18:15 09/01/21 18:49 Dextrose IV 10/01/21 18:14 8 mg/hr Q5H DARREN 20 mls/hr Administration 8 MG/HR Octreotide Acetate 500 mcg/ 100.5 mls @ 10.05 mls/hr 09/01/21 20:00 09/01/21 21:05 Dextrose IV 10/01/21 19:59 50 mcg/hr .Q10H DARREN 10.1 mls/hr Administration 50 MCG/HR Phytonadione 5 mg/ Dextrose 50.5 mls @ 101 mls/hr 09/01/21 21:15 09/01/21 21:22 IV 09/01/21 21:44 101 mls/hr ONE ONE Administration Ondansetron HCl 4 mg 09/01/21 21:19 09/01/21 21:27 Ondansetron Inj 2 Mg/Ml 2 Ml Vial IV 10/01/21 21:29 4 mg Q6H PRN Administration Nausea Past Medical History Medical History Anemia Back pain ARTHRITIS PER PT Chews tobacco Cirrhosis of liver Fluid retention LEGS AND ABDOMEN High blood pressure HX, CURRENTLY LOW BLOOD PRESSURE PER PT History of COVID-2020 Renal insufficiency Past Surgical History Surgical History No history of previous surgery Social History Smoking Status: Former smoker tobacco type: cigarettes, cigars and smokeless tobacco Smoking cigarettes per day: 1 PACK/WEEK, CHEW TOBACCO EVERYDAY, CIGARS SOME DAYS Hx Alcohol Use: No Hx Substance Use: Yes substance use type: former substance user and prescription drug Substance Use Type Other:: MEDICAL MARIJUANA CARD (INSTRUCTED TO BRING CARD/CURRENTLY ) Physical Exam Vital Signs Last Vital Signs Temp 36.8 C 09/01/21 19:28 Pulse 95 H 09/01/21 19:28 Resp 18 09/01/21 19:28 BP 155/83 H 09/01/21 19:28 Pulse Ox 100 09/01/21 19:28 Testing Laboratory Results 09/01/21 Unknown 09/01/21 Unknown PT 16.7 Seconds (9.0-12.0) H 09/01/21 Unknown INR 1.6 (0.9-1.1) H 09/01/21 Unknown APTT 27.9 Seconds (21.0-31.0) 09/01/21 Unknown Blood Type A Positive 09/01/21 18:30 Antibody Screen NEGATIVE 09/01/21 18:30 Electrocardiogram Date: 11/13/19 Findings: + NSR @ (79) Chest X-Ray Date: 09/01/21 XR chest 1V portable CLINICAL HISTORY: GI bleed. Evaluate cardiopulmonary status. COMPARISON STUDY: 11/13/2019 TECHNIQUE: 1 view of the chest FINDINGS: Single frontal view of the chest demonstrates the cardiomediastinal silhouette to be within normal limits. The lungs are clear of alveolar opacities. There is no evidence for pleural effusion. There is no evidence for vascular congestion. There is no acute osseous pathology. IMPRESSION: 1. No acute cardiopulmonary disease. ACT 112: Negative or not required by law. Electronically signed by: Humberto Callejas M.D. 09/01/2021 7:03 PM Dictated:09/01/211901 Transcribed: 09/01/211901 Other Testing CT abd pelvis IV con only CLINICAL HISTORY: GI bleed. Reported vomiting of blood COMPARISON STUDY: 11/13/2019 CT DOSE: 515.48 mGy.cm TECHNIQUE: Standard CT of the Abdomen and Pelvis was performed with IV contrast. A dose lowering technique was utilized adhering to the principles of ALARA. Contrast Volume: Optiray 320, 92 ml. The patient did not receive oral contrast. FINDINGS: Lung base: There has been interval development of a small right pleural effusion. Abdominal cavity and bowel: There is diffuse mucosal thickening present along the course of the entire colon from the cecum to the sigmoid colon. Mild pericolonic inflammatory changes are present throughout its course as well. Findings are characteristic of an infectious versus inflammatory colitis. There is no evidence for diverticula or diverticulitis. The stomach is grossly distended with liquid and food stuff. The fluid dem onstrates increased attenuation most characteristic of active bleeding. The findings are characteristic of marked gastritis. Underlying ulcer cannot be excluded. The small bowel loops are normally placed within the abdomen and pelvis without evidence for dilatation or obstruction. There is a normal appendix in the right lower quadrant. There is no evidence for free air. There are now extensive gastric hilar varices. There is no gross ascites. Liver: The liver is again enlarged with a cirrhotic morphology. There is no evidence for enhancing mass lesion. Spleen: There is homogeneous attenuation of the splenic parenchyma. There is no enhancing mass lesion. There is now marked splenomegaly and splenic hilar varices. Pancreas: There is homogeneous attenuation of the pancreatic parenchyma. There is no evidence for mass lesion or peripancreatic fluid collection. Gall Bladder: The gallbladder is well distended with no evidence for intraluminal calculi, wall thickening or pericholecystic edema. Adrenal glands: The adrenal glands are normal in size and attenuation. There is no evidence for enhancing mass lesion. Kidneys: There is homogeneous attenuation of the renal parenchyma bilaterally. There is no evidence for renal calculus or hydronephrosis. There is no evidence for enhancing mass. Bladder: The bladder is within normal limits with no evidence for focal mass, calculus or diverticulum. : There is no evidence for pelvic mass or adenopathy. There is no evidence for pelvic ascites. Vasculature: There is no evidence for aneurysmal dilatation of the abdominal aorta. Atherosclerotic calcification is present. Osseous structures: There is no acute osseous pathology. Degenerative changes are seen within the spine. IMPRESSION: 1. Small right pleural effusion. 2. Diffuse mucosal thickening of the colon with pericolonic inflammatory changes characteristic of an infectious or inflammatory colitis. There is no evidence for diverticula or diverticulitis. 3. Marked distention of the stomach with liquid and food stuff. Increased attenuation fluid is present characteristic of active bleeding. The findings are characteristic of gastritis. Underlying ulcer cannot be excluded. 4. Cirrhosis of the liver, marked splenomegaly and marked gastric hilar and splenic varices. ACT 112: Negative or not required by law. Electronically signed by: Humberto Callejas M.D. 09/01/2021 7:32 PM Dictated:09/01/211916 Transcribed: 09/01/211916
[2021-09-01 21:48] LABS: Appearance Urine Clear (Clear); Bilirubin Urine Negative (Negative); Blood Urine Negative (Negative); Color Urine Yellow; Glucose Urine UA Negative (Negative); Ketones Urine Trace (Negative); Leukocyte Esterase Urine Negative (Negative); Nitrite Urine Negative (Negative); Protein Urine Negative (Negative); Specific Gravity Urine > 1.045 (1.000-1.030); Urobilinogen Urine Negative (Negative)
[2021-09-01] MEDS ORDERED: PHENYLEPHRINE 100MCG/ML 5ML SYR IV PRN (21:53)
[2021-09-01] MEDS ORDERED: ATROPINE SULFATE 0.1 MG/ML 10ML SYR IV PRN (21:53)
[2021-09-01] MEDS ORDERED: fentaNYL citrate 100 MCG/2 ML VIAL IV PRN (21:53)
[2021-09-01] MEDS ORDERED: PROMETHAZINE HCL 12.5 MG in SODIUM CHLORIDE 0.9% 50 ML IV PRN (21:53)
[2021-09-01] MEDS ORDERED: LABETALOL HCL IV 5 MG/ML 20ML IV PRN (21:53)
[2021-09-01] MEDS ORDERED: ePHEDrine sulfate 50 MG/ML AMP IV PRN (21:53)
--- NOTE | 2021-09-01 21:53 | Gastrointestinal Consultation ---
Date of Consultation September 01, 2021 Assessment & Plan (1) Upper gastrointestinal hemorrhage: Differential includes PUD and varices. Because of ongoing bleeding and fresh blood noted recommend urgent EGD. Procedure and risks explained to patient which include but not limited to medication reaction, bleeding, perforation, aspiration, and missed lesions. Recommend Abx in setting of bleeding with cirrhosis and ascites to improve patient outcome. abd pain--no evidence of perforation on CT, no guardign nor rebound to indicate perforation. Benefit of EGD outweighs risk. acute blood loss anemia.transfuse prn cirrhosis--outpt [facility] liver tx referral in process. History of Present Illness Reason for Consultation: Vomiting blood Attending Physician: Fidel Brown MD History of Present Illness CC vomiting blood HPI Pt know to [facility] GI. He was last seen in the office by DR Trinidad 07/29/2021 for ETOH cirhosis, Abd u/s ordered sheiwng cirrhosis and moderate ascites. EGD and colon was apparently ordered by colo only done which Dr Espinoza did 08/28/2021 showing mild hemorhoiods, o/w normal. Pt with mild epi pain maybe last couple weeks.. He started vomiting blood this am at 0300 and intermittently all day. Also black stools today. Hgb 9.3. INR 1.6. Most recent vomitius prior to arrival dark red and current NG darkred/black material. Some current mild abd pain. CT a/p stomach distended and full of blood, gastric varices, ascites. GB wall thickening. Allergies Allergy/AdvReac Type Severity Reaction Status Date / Time No Known Allergies Allergy Verified 09/01/21 20:04 Home Medications Medication Instructions Recorded Confirmed Type furosemide 40 mg tablet 40 mg PO DAILY 09/01/21 09/01/21 History ibuprofen 200 mg tablet (Advil) 600 - 800 mg PO Q8 PRN 09/01/21 09/01/21 History spironolactone 100 mg tablet 100 mg PO DAILY 09/01/21 09/01/21 History Patient History Medical History Anemia Back pain ARTHRITIS PER PT Chews tobacco Cirrhosis of liver Fluid retention LEGS AND ABDOMEN High blood pressure HX, CURRENTLY LOW BLOOD PRESSURE PER PT History of COVID-2020 Renal insufficiency Surgical History No history of previous surgery Social History Smoking Status: Former smoker Tobacco Type: Cigarettes Cigarettes Per Day: 1 PACK/WEEK, CHEW TOBACCO EVERYDAY, CIGARS SOME DAYS; Hx Alcohol Use: No Hx Substance Use: Yes Substance Use Type Other:: MEDICAL MARIJUANA CARD (INSTRUCTED TO BRING CARD/CURRENTLY ) Preferred Language: Cook Islander Communication Ability: Effective 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 Skin: no rashes, warm and dry Neurologic: PERRL, EOMI, accommodation nl, no face palsy, no dysarthria Psychiatric: A+Ox3, euthymic affect Results & Data ([facility]) Vital Signs (Past 12 Hours) Vital Signs Temp Pulse Pulse Resp BP BP Pulse Ox 09/01/21 19:28 36.8 C 95 H 18 155/83 H 100 09/01/21 17:51 36.9 C 97 H 24 125/85 98
[2021-09-01 22:14] LABS: Fibrinogen 184 mg/dl (184-400)
[2021-09-01] MEDS ORDERED: DEXAMETHASONE SOD INJ 4 MG/ML VIAL ONE (22:17)
[2021-09-01] MEDS ORDERED: PHENYLEPHRINE 100MCG/ML 5ML SYR ONE (22:17)
--- NOTE | 2021-09-01 22:45 | GI REPORT ---
Patient Name: Shawn Jacob Procedure Date: 09/01/2021 9:47 PM Date of : 1965 Admit Type: Inpatient Age: 56 Gender: Male Attending MD: Aidan Fay MD Procedure: Upper GI endoscopy Providers: Aidan Fay MD Referring MD: Fidel Brown Indications: Acute post hemorrhagic anemia, Hematemesis Medicines: General Anesthesia Complications: No immediate complications. Estimated blood loss: None. Estimated Blood Loss: Estimated blood loss: none. Procedure: Pre-Anesthesia Assessment: - The risks and benefits of the procedure and the sedation options and risks were discussed with the patient. All questions were answered and informed consent was obtained. After obtaining informed consent, the endoscope was passed under direct vision. Throughout the procedure, the patient's blood pressure, pulse, and oxygen saturations were monitored continuously. The Endoscope was introduced through the mouth, and advanced to the second part of duodenum. The upper GI endoscopy was accomplished without difficulty. The patient tolerated the procedure well. Procedure and risks explained to patient which include but not limited to medication reaction, bleeding, perforation, aspiration , and missed lesions. Judicious gas insufflation was used and gas removal done on the way out. The lumen was always visualized when advancing the scope. Prep was fair to poor secondary to old blood.. Washes and suctioning used as needed with overall reasonable visualization but small or flat lesions could be missed. . Retroflexion to look at the fundus and cardia of the stomach and GE junction was done. Findings: The Z-line was regular and was found 49 cm from the incisors. There is no endoscopic evidence of varices in the entire esophagus. The esophagus was normal. Varices with no bleeding were found in the cardia. There were stigmata of recent bleeding. They were large in largest diameter. Fresh blood noted in fundus of stomach near varices.. All the fresh blood removed and no active bleeding noted. Coffee ground material in fundus and scattered throughout rest of stomach could interfere with small or flat lesion visualization. The examined duodenum was normal. The exam was otherwise without abnormality. Impression: - Z-line regular, 49 cm from the incisors. - Normal esophagus. - Gastric varices, with stigmata of recent bleeding. - Fresh blood noted in fundus of stomach near varices. All the fresh blood removed and no active bleeding noted. Coffee ground material in fundus and scattered throughout rest of stomach could interfere with small or flat lesion visualization. - Normal examined duodenum. - The examination was otherwise normal. - No specimens collected. Recommendation: - Return patient to ICU for ongoing care. - Octreotide drip for varices. If patient has recurrent bleeding would send to [place] for further care of isolated gastric varices. Aidan Fay M.D. Aidan Fay MD 09/01/2021 10:45:23 PM This report has been signed electronically. Note Initiated On: 09/01/2021 9:47 PM Number of Addenda: 0 I attest to the content of the Intraoperative Record and orders documented therein, exceptions below {[id number]}
--- NOTE | 2021-09-01 23:01 | Anesthesiology Progress Note ---
Date of Service September 01, 2021 Anesthesia Post Procedure Vital Signs Vital Signs: Temp Pulse Pulse Resp BP BP Pulse Ox 09/01/21 22:45 37.2 C 74 18 104/33 L 95 09/01/21 19:28 36.8 C 95 H 18 155/83 H 100 09/01/21 17:51 36.9 C 97 H 24 125/85 98 Pain Intensity Abdomen: Pain Intensity: 3 Transfer of Care Handoff Completed per policy Notes Mental Status: alert / awake / arousable Patient Amnestic to Procedure: Yes Nausea / Vomiting: adequately controlled Pain: adequately controlled Airway Patency, RR, SpO2: stable & adequate BP & HR: stable & adequate Hydration State: stable & adequate Anesthetic Complications: no major complications apparent and Pt Satisfied with anesthetic care Notes: The patient was extubated in the OR and transported back to PACU. One unit of PRBC was transfused to the patient. He has been slightly hypotensive but his vital signs are otherwise stable. He is now resting comfortably. Sign out was given to Adarsh Stewart in the ICU.
[2021-09-01] MEDS: PIPERACILLIN/TAZOBACTAM 3.375 GM in DEXTROSE 5% 100 ML IV SCH (23:44)
--- NOTE | 2021-09-02 01:33 | Communication Note ---
Date of Service: September 02, [address] Fay, I did speak with a physician at [facility] regarding transfer to a tertiary center. Currently he is hemodynamically stable, however with EGD findings of isolated gastric varices, his condition could change very rapidly. If he were to rebleed there is no surgical procedure at this facility of benefit and he would need specialist at tertiary center. He is currently been accepted by Dr. Catalan, president [employer], and awaiting bed and transfer. Continue to follow H&H and transfuse as indicated and medical management with ocreotide. CRITICAL CARE TIME - I have personally spent 45 minutes of critical care time in the direct management of this patient. This is a life/limb threatening event. This includes time spent evaluating patient, direct bedside care, chart review, placing orders, interpretation of diagnostic studies, discussion with consultants, patient, and family members, as well as other required patient management activities. This time is exclusive of all separately billable procedures, and teaching time and separate from and in addition to any other critical care service time. Coding Level of Care Code Critical Care 1st 30-74 mins
--- NOTE | 2021-09-02 01:53 | Discharge Summary ---
Date of Service September 02, 2021 Admission HPI Per Admitting Provider 56 YOM with medical history of : Cirrhosis secondary to alcohol abuse, patient has been sober for > 1 year. Patient previously followed with [facility] for GI for workup for liver transplant. Patient has not had a EGD yet, but had Colonoscopy performed on . Patient comes in to the EMD today for onset of abdominal pain with vomiting of blood at ~ 0300 this morning and passing of some black stools as the day went on. The patient came to the EMD today via EMS. In the EMD the patient had routine blood work performed, type and cross performed, and CT of the abdomen and pelvis performed. His HGB level is 9.3- no recent level for comparison. He is complaining as well as severe abdominal pain from the umbilicus to epigastrium, but abdomen is soft. His CT scan is concerning for stomach distention with liquid and food stuff, likely consistent with active bleeding and gastritis without being able to exclude an ulceration, as well as marked gastric hilar and splenic varices. Dr. Fay has been in contact with multiple times with review of the imaging as well. Patient is currently on Protonix drip and bolus and will add octreotide on. Patient will be admitted to the ICU, we have multple units of blood products that are on hold for the patient. Will Keep NPO, recommendations from GI to place NGT, will place bah catheter. COVID test on admission is: NEGATIVE Admission Exam (Per Admitting) Constitutional Physical Exam: PHYSICAL EXAM: General: awake, alert, Head: Normocephalic, atraumatic ENT: PERRL, EOMI, no pharyngeal exudate, mucous membranes dry Neuro: AAO x 3, speech clear and appropriate, strength intact bilaterally 5/5, sensation intact and equal all extremities and dermatomes, no pronator drift Chest: equal rise and fall of the chest, no accessory muscle use, no heaves or thrills, Clear to auscultation, on room air, Cardiac: Regular rate and rhythm, telemetry reviewed-NSR no ectopy, skin warm dry, cap refill 3 seconds, peripheral pulses +2 no JVD, no murmur, peripheral pulses strong GI: hyperactive bowel sounds, tenderness with deep palpation to left lower quad, epigastrium soft and no pain with deep palpation : Spontaneously voiding, no pain, no CVA tenderness,- place bah Extremities: Normal inspection, no peripheral edema or erythema, calfs nontender to palpation Psych: Normal mood and affect Skin: no rash or erythema Discharge Data Consultations 09/01/21 18:40 Consult Gastroenterology Routine 09/01/21 19:11 ED Decision to Admit Stat 09/01/21 19:22 Consult Prosthetic Makeup Designer Routine 09/01/21 21:01 Consult Gastroenterology Routine 09/02/21 01:42 Burn CD for patient Routine Procedures Performed Operation Date: 09/01/21 21:10 Actual Procedures p Esophagogastroduodenoscopy(Not Applicable) - [facility] (1) Upper gastrointestinal hemorrhage: UGI bleed acute active - Protonix bolus and drip - Octreotide bolus and drip - NGT placed in the MICU with return of large volume blood/liquid - s/p transfusion 2u PRBCs - INR 1.6, fibrinogen added, platelet count 206 - Vitamin K 5mg IV redose if needed - FFP x 1 unit ordered - on no other blood thinners - Blatchford score 12 - Maintain at least 2 large bore IV - Airway control if vomiting occurs (2) Esophageal varices: As above - octreotide added - Continue Zosyn- can change to Rocephin (3) Cirrhosis: MELD 22 Child GORE 8 without encephalopathy hold diuretics at this time until hemodynamics proven with active bleeding - glucose checks AC/HS - hypoglycemic protocol - blood cultures Coding Level of Care Code D/C DAY MANAGEMENT <30 MINS Diagnoses Upper gastrointestinal hemorrhage K92.2 Esophageal varices I85.01 Esophageal varices bleeding: with bleeding Esophageal varices type: unspecified type Cirrhosis K74.60
[2021-09-02] MEDS: OCTREOTIDE ACETATE 500 MCG in DEXTROSE 5% 100 ML IV SCH ×2 (04:52→14:31)
[2021-09-02 06:31] LABS: Hematocrit (blood only) 24.1 % (42-52); Hemoglobin 8.4 g/dL (14.0-18.0); Mean Corpuscular Hemoglobin 32.4 pg (25-34); Mean Corpuscular Hgb Conc 34.9 g/dL (32-36); Mean Corpuscular Volume 93.1 fL (80-100); Mean Platelet Volume 10.6 fL (7.4-10.4); Platelet Count 62 K/uL (130-400); RDW Coefficient of Variation 15.9 % (11.5-14.5); RDW Standard Deviation 53.7 fL (36.4-46.3); Red Blood Count 2.59 M/uL (4.7-6.1); White Blood Count 9.76 K/uL (4.8-10.8)
[2021-09-02 06:32] LABS: Immature Granulocytes # (auto) 0.03 K/uL (0.00-0.02); Immature Granulocytes % (auto) 0.3 %; Lymphocytes # (auto) 0.89 K/uL (1.2-3.4); Lymphocytes % (auto) 9.1 %; Neutrophils # (auto) 8.64 K/uL (1.4-6.5); Neutrophils % (auto) 88.6 %; Platelet Estimate Decreased (Normal); Polychromasia 1+
[2021-09-02 06:36] LABS: BUN Creatinine Ratio 27.5 (10-20); Calcium 7.8 mg/dl (8.5-10.1); Creatinine Clr Calc Pharmacy 61.9 ml/min; Est GFR (African American) 63.5 ml/min; Est GFR (Non-African American) 54.8 ml/min; Magnesium 1.8 mg/dl (1.7-2.4); Potassium 5.3 mmol/L (3.5-5.1)
--- NOTE | 2021-09-02 06:40 | XRay Report ---
KUB HISTORY: Status post placement of an enteric tube placment of OGT COMPARISON: CT abdomen and pelvis of same day FINDINGS: Status post placement of an enteric tube with distal tip projected over the gastric body. S mall right pleural effusion. Nonobstructive bowel gas pattern. No renal calculi. No ureteral calculi . No pneumoperitoneum or pneumatosis. No fracture. IMPRESSION: Distal tip of enteric tube projects over the gastric body. ACT 112: Negative or not required by law. The above report was generated using voice recognition software. It may contain grammatical, syntax o r spelling errors. Electronically signed by: Jason Rodríguez M.D. 09/02/2021 6:39 AM
[2021-09-02 06:56] LABS: Albumin Level 2.8 gm/dl (3.4-5.0); Bilirubin Direct 1.5 mg/dl (0-0.2); Bilirubin,Total 5.2 mg/dl (0.2-1.0); Total Protein 5.7 gm/dl (6.0-8.3)
--- NOTE | 2021-09-02 07:37 | Critical Care Progress Note ---
Date of Service September 02, 2021 Assessment & Plan (1) Upper gastrointestinal hemorrhage: Plan: Impression: 56-year-old male with history of liver cirrhosis and varices presents to the ICU with active upper GI bleed and plan to undergo blood transfusion and emergent EGD this evening. Neuro - [facility] ICU: Negative Cardiac - Currently hemodynamically stable and normal sinus rhythm. Respiratory - Lungs clear to auscultation. No history of pulmonary disease. Continuous monitoring pulse ox GI - Upper GI hemorrhageunsure of source at this time as patient has history of cirrhosis and varices -Continue Protonix and octreotide drip -EGD with evidence of gastric varices. -Will need transfer to tertiary care for BRTO Cirrhosis/liver failure meld of 22. No encephalopathy -Follows with [facility] [place] liver service. Currently undergoing work-up for liver transplant -Follow-up with GI for recommendations -Trend LFTs -Hold diuretics for now -Monitor RENAL/LYTES - Creatinine stable, monitor routine BMPs replete electrolytes as indicated - Foleystrict I's and O's ENDO - No history of diabetes or thyroid disease ICU hyperglycemic protocol HEME - Acute blood loss anemialikely blood loss anemia in setting of acute GI bleed. May also have chronic element in the setting of liver failure. -Transfused 2 units RBCs and 1 FFP. Also elevated INR of 1.6. Did receive 5 mg IV vitamin K -Trend H&H and transfuse as indicated. Follow-up fibrinogen and INR ID - Empiric coverage with Zosyn No clear indication for infectious process at this time. Trend fever curve LINES/IV ACCESS - Bilateral large-bore IVs x2 DVT PROPHYLAXIS - SCDs, hold on anticoagulation in the setting of active bleeding (2) Cirrhosis: (3) Anemia: (4) Renal insufficiency: (5) Melena: (6) Esophageal varices: (7) Alcoholic liver failure: (8) Acute blood loss anemia: Admission and Anticipated Discharge Date Admission Date: September 01, 2021 Subjective Patient seen and examined. He is alert and oriented. He had some mild nausea this morning. He denies any abdominal pain at present. Hemodynamics remained stable. Review of Systems Review of Systems: All systems reviewed & are unremarkable except as noted in HPI & below Physical Exam Constitutional: cooperative and comfortable Eyes: PERRL, conjunctivae normal, anicteric sclerae ENMT: external ear and nose normal, oropharynx normal Neck: trachea midline, no thyromegaly Respiratory: normal respiratory effort, lungs clear to auscultation Cardiovascular: RRR, no murmur, no edema Heart Sounds: normal S1 and normal S2; no murmur Vessels: no JVD Extremities: normal capillary refill; no edema Gastrointestinal (Abdomen): Abdomen tender to palpation in epigastric region. Abdomen soft nondistended. Skin: no rashes, warm and dry Neurologic: PERRL, EOMI, accommodation nl, no face palsy, no dysarthria Psychiatric: A+Ox3, euthymic affect Results & Data Results & Data ([facility]) Vital Signs (Past 12 Hours) Vital Signs Temp Pulse Pulse Resp BP BP Pulse Ox 09/02/21 06:00 61 14 114/63 97 09/02/21 05:30 64 17 97 09/02/21 05:00 69 14 124/77 99 09/02/21 04:50 37 C 65 14 112/60 95 09/02/21 04:26 37 C 63 12 111/57 L 95 09/02/21 04:11 37 C 66 14 108/68 96 09/02/21 03:54 36.7 C 68 12 111/63 95 09/02/21 03:44 36.7 C 65 13 114/62 96 09/02/21 02:59 69 14 115/66 95 09/02/21 01:59 68 12 118/62 97 09/02/21 01:29 71 14 113/66 100 09/02/21 01:14 36.9 C 73 14 112/66 100 09/02/21 00:57 36.7 C 70 14 120/64 99 09/02/21 00:30 36.7 C 74 14 118/64 96 09/02/21 00:20 74 12 103/60 97 09/01/21 23:51 09/01/21 23:50 81 15 111/63 95 09/01/21 23:35 36.5 C 78 15 107/60 95 09/01/21 23:19 36 C L 73 72 14 89/54 L 103/60 944 H 09/01/21 23:10 36.9 C 81 18 98/54 L 97 09/01/21 23:05 73 18 90/45 L 94 09/01/21 23:02 37 C 75 18 89/45 L 95 09/01/21 22:45 37.2 C 74 18 104/33 L 95 09/01/21 22:00 86 14 120/87 98 09/01/21 21:30 111 H 19 155/88 H 100 09/01/21 21:00 96 H 17 133/78 96 09/01/21 20:50 37.2 C 108 H 19 120/50 L 98 Pulse Ox 09/02/21 06:00 09/02/21 05:30 09/02/21 05:00 09/02/21 04:50 09/02/21 04:26 09/02/21 04:11 09/02/21 03:54 09/02/21 03:44 09/02/21 02:59 09/02/21 01:59 09/02/21 01:29 09/02/21 01:14 09/02/21 00:57 09/02/21 00:30 09/02/21 00:20 09/01/21 23:51 94 09/01/21 23:50 09/01/21 23:35 09/01/21 23:19 09/01/21 23:10 09/01/21 23:05 09/01/21 23:02 09/01/21 22:45 09/01/21 22:00 09/01/21 21:30 09/01/21 21:00 09/01/21 20:50 Coding Level of Care Code 15529 Subs [facility] 3 Diagnoses Upper gastrointestinal hemorrhage K92.2 Cirrhosis K74.60 Anemia D64.9 Renal insufficiency N28.9 Melena K92.1 Esophageal varices I85.01 Esophageal varices bleeding: with bleeding Esophageal varices type: unspecified type Alcoholic liver failure K70.40 Acute blood loss anemia D62 (1) Esophageal varices Esophageal varices bleeding: with bleeding Esophageal varices type: unspecified type Qualified Code(s): I85.01 - Esophageal varices with bleeding
[2021-09-02 07:47] LABS: Hematocrit (blood only) 23.4 % (42-52); Hemoglobin 8.2 g/dL (14.0-18.0); Mean Corpuscular Hemoglobin 33.1 pg (25-34); Mean Corpuscular Volume 94.4 fL (80-100); RDW Coefficient of Variation 15.9 % (11.5-14.5); RDW Standard Deviation 53.7 fL (36.4-46.3); Red Blood Count 2.48 M/uL (4.7-6.1); White Blood Count 9.85 K/uL (4.8-10.8)
[2021-09-02 08:12] LABS: Mean Platelet Volume 10.2 fL (7.4-10.4); Platelet Count 57 K/uL (130-400); Platelet Estimate Decreased (Normal)
[2021-09-02] MEDS: MAGNESIUM SULFATE / D5W 1 GM/100 ML BAG IV SCH ×2 (08:21→10:10)
[2021-09-02] MEDS: PIPERACILLIN/TAZOBACTAM 3.375 GM in DEXTROSE 5% 100 ML IV SCH (08:22)
[2021-09-02 08:33] LABS: INR 1.5 (0.9-1.1); Prothrombin Time 15.3 Seconds (9.0-12.0)
--- NOTE | 2021-09-02 08:37 | Gastroenterology Progress Note ---
Date of Service September 02, 2021 Assessment & Plan (1) Upper gastrointestinal hemorrhage: Plan: Bleeding varices: Patient is status post EGD noting gastric varices with recent bleeding. Patient stable this morning. Continue octreotide, antibiotics, supportive care measures. May advance to clear liquids. Recommend transfer to tertiary care while stable for varices procedural intervention abdominal pain--no evidence of perforation on CT, no guarding nor rebound to indicate perforation. Resolved this morning acute blood loss anemia---transfuse prn cirrhosis--Pending outpatient transplant evaluation at [facility]. Case reviewed with Dr. Fay. Please refer to supervising physician addendum for further recommendations. I have spent 25 minutes of discrete time performing the activities of this visit which include but are not limited to review of the medical record, obtaining a history, physical exam, and entering information in the electronic record. (2) Esophageal varices: (3) Cirrhosis: Admission and Anticipated Discharge Date Admission Date: September 01, 2021 Supervising Physician Co-Signing Physician Notes I have seen and examined the patient. I agree with note above by AMANDA Merrill except as noted below. HPI Pt denies abd pain. No stools since EGD. Hgb 8.4 this am vs 9.3. PE Abdomen pos bs soft, no guarding nor rebound A/P UGI bleeding--stopped at present Gastric varices--source of bleeding. Plan is to go to [place] for further treatment. As the supervising physician, I , Aidan Fay MD have spent 15 minutes of discrete time performing the activities of this visit which include but not limited to review of the medical records, obtaining a history, physical exam and entering information in the electronic record. AMANDA Merrill has reported spending 25 minutes of discrete time with the activities of this visit. Subjective The patient is awake alert and oriented this morning. Reports that approximately 3 AM Thursday morning he began experiencing bloody emesis. Prior to this he was experiencing some abdominal discomfort and urge for bowel movement in which she had melena stools. Came to the emergency department with EGD as noted. Patient denies any abdominal pain, nausea, vomiting, further bowel movement this morning he is feeling quite thirsty and is hoping for clear liquids this morning. 09/01/2021: EGD notes are reviewed due to acute posthemorrhagic anemia and hematemesis demonstrated a regular Z-line found 49 cm from the incisors. No endoscopic evidence of varices in the entire esophagus. The esophagus was normal. There were varices with no bleeding found in the cardia with stigmata of recent bleeding. Fresh blood noted in the fundus of the stomach near the varices. All fresh blood removed with no active bleeding noted. Coffee-ground material in the fundus and scattered throughout the rest of the stomach. Normal duodenum. Review of Systems Review of Systems: All systems reviewed & are unremarkable except as noted in Subjective Physical Exam Constitutional: WD/WN, vitals as above Eyes: PERRL, conjunctivae normal, anicteric sclerae Neck: normal visual inspection Respiratory: normal respiratory effort, lungs clear to auscultation Cardiovascular: RRR, no murmur, no edema Gastrointestinal (Abdomen): Inspection/Auscultation: abdomen normal to i nspection and normal bowel sounds; abdomen not distended Percussion/Palpation: abdomen soft; abdomen nontender, no guarding and abdomen not rigid Skin: no rashes, warm and dry Neurologic: PERRL, EOMI, accommodation nl, no face palsy, no dysarthria Psychiatric: A+Ox3, euthymic affect Results & Data ([facility]) Vital Signs (Past 12 Hours) Vital Signs Temp Pulse Pulse Resp BP BP Pulse Ox 09/02/21 06:00 61 14 114/63 97 09/02/21 05:30 64 17 97 09/02/21 05:00 69 14 124/77 99 09/02/21 04:50 37 C 65 14 112/60 95 09/02/21 04:26 37 C 63 12 111/57 L 95 09/02/21 04:11 37 C 66 14 108/68 96 09/02/21 03:54 36.7 C 68 12 111/63 95 09/02/21 03:44 36.7 C 65 13 114/62 96 09/02/21 02:59 69 14 115/66 95 09/02/21 01:59 68 12 118/62 97 09/02/21 01:29 71 14 113/66 100 09/02/21 01:14 36.9 C 73 14 112/66 100 09/02/21 00:57 36.7 C 70 14 120/64 99 09/02/21 00:30 36.7 C 74 14 118/64 96 09/02/21 00:20 74 12 103/60 97 09/01/21 23:51 09/01/21 23:50 81 15 111/63 95 09/01/21 23:35 36.5 C 78 15 107/60 95 09/01/21 23:19 36 C L 73 72 14 89/54 L 103/60 944 H 09/01/21 23:10 36.9 C 81 18 98/54 L 97 09/01/21 23:05 73 18 90/45 L 94 09/01/21 23:02 37 C 75 18 89/45 L 95 09/01/21 22:45 37.2 C 74 18 104/33 L 95 09/01/21 22:00 86 14 120/87 98 09/01/21 21:30 111 H 19 155/88 H 100 09/01/21 21:00 96 H 17 133/78 96 09/01/21 20:50 37.2 C 108 H 19 120/50 L 98 Pulse Ox 09/02/21 06:00 09/02/21 05:30 09/02/21 05:00 09/02/21 04:50 09/02/21 04:26 09/02/21 04:11 09/02/21 03:54 09/02/21 03:44 09/02/21 02:59 09/02/21 01:59 09/02/21 01:29 09/02/21 01:14 09/02/21 00:57 09/02/21 00:30 09/02/21 00:20 09/01/21 23:51 94 09/01/21 23:50 09/01/21 23:35 09/01/21 23:19 09/01/21 23:10 09/01/21 23:05 09/01/21 23:02 09/01/21 22:45 09/01/21 22:00 09/01/21 21:30 09/01/21 21:00 09/01/21 20:50 Laboratory Results Laboratory Results - last 24 hr 09/01/21 09/01/21 09/01/21 18:02 18:30 21:15 WBC RBC Hgb Hct MCV MCH MCHC RDW Std Deviation RDW Coeff of Diane Plt Count MPV Immature Gran % (Auto) Neut % (Auto) Lymph % (Auto) [place] % (Auto) Eos % (Auto) Baso % (Auto) Neut # (Auto) Lymph # (Auto) [place] # (Auto) Eos # (Auto) Baso # (Auto) Immature Gran # (Auto) Platelet Estimate Polychromasia Ovalocytes Echinocytes Acanthocytes (Spur) Peripher Smr Path Cons PT INR APTT PTT Ratio Fibrinogen Sodium Potassium Chloride Carbon Dioxide Anion Gap BUN Creatinine Est Cr Clr Drug Dosing Est GFR ( Amer) Est GFR (Non-Af Amer) BUN/Creatinine Ratio Glucose POC Glucose Lactate Calcium Magnesium Total Bilirubin Direct Bilirubin AST ALT Alkaline Phosphatase Troponin I High Sens Total Protein Albumin Globulin Albumin/Globulin Ratio Lipase Urine Color Urine Appearance Urine pH Ur Specific [place] Urine Protein Urine Glucose (UA) Urine Ketones Urine Blood Urine Nitrite Urine Bilirubin Urine Urobilinogen Ur Leukocyte Esterase Nasal Screen MRSA (PCR) Negative SARS-CoV-2, RNA, NAAT NEGATIVE Blood Type A Positive Blood Type Recheck Antibody Screen NEGATIVE Crossmatch See Detail 09/01/21 09/01/21 09/01/21 21:28 21:28 21:28 WBC RBC Hgb 7.8 L Hct MCV MCH MCHC RDW Std Deviation RDW Coeff of Diane Plt Count MPV Immature Gran % (Auto) Neut % (Auto) Lymph % (Auto) [place] % (Auto) Eos % (Auto) Baso % (Auto) Neut # (Auto) Lymph # (Auto) [place] # (Auto) Eos # (Auto) Baso # (Auto) Immature Gran # (Auto) Platelet Estimate Polychromasia Ovalocytes Echinocytes Acanthocytes (Spur) Peripher Smr Path Cons PT INR APTT PTT Ratio Fibrinogen Sodium Potassium Chloride Carbon Dioxide Anion Gap BUN Creatinine Est Cr Clr Drug Dosing Est GFR ( Amer) Est GFR (Non-Af Amer) BUN/Creatinine Ratio Glucose POC Glucose Lactate 13.1 H* Calcium Magnesium Total Bilirubin Direct Bilirubin AST ALT Alkaline Phosphatase Troponin I High Sens Total Protein Albumin Globulin Albumin/Globulin Ratio Lipase Urine Color Urine Appearance Urine pH Ur Specific [place] Urine Protein Urine Glucose (UA) Urine Ketones Urine Blood Urine Nitrite Urine Bilirubin Urine Urobilinogen Ur Leukocyte Esterase Nasal Screen MRSA (PCR) SARS-CoV-2, RNA, NAAT Blood Type Blood Type Recheck A Positive Antibody Screen Crossmatch 09/01/21 09/01/21 09/01/21 21:28 21:33 23:36 WBC RBC Hgb Hct MCV MCH MCHC RDW Std Deviation RDW Coeff of Diane Plt Count MPV Immature Gran % (Auto) Neut % (Auto) Lymph % (Auto) [place] % (Auto) Eos % (Auto) Baso % (Auto) Neut # (Auto) Lymph # (Auto) [place] # (Auto) Eos # (Auto) Baso # (Auto) Immature Gran # (Auto) Platelet Estimate Polychromasia Ovalocytes Echinocytes Acanthocytes (Spur) Peripher Smr Path Cons PT INR APTT PTT Ratio Fibrinogen 184 Sodium Potassium Chloride Carbon Dioxide Anion Gap BUN Creatinine Est Cr Clr Drug Dosing Est GFR ( Amer) Est GFR (Non-Af Amer) BUN/Creatinine Ratio Glucose POC Glucose 171 H Lactate Calcium Magnesium Total Bilirubin Direct Bilirubin AST ALT Alkaline Phosphatase Troponin I High Sens Total Protein Albumin Globulin Albumin/Globulin Ratio Lipase Urine Color Yellow Urine Appearance Clear Urine pH 5.0 Ur Specific [place] > 1.045 H Urine Protein Negative Urine Glucose (UA) Negative Urine Ketones Trace H Urine Blood Negative Urine Nitrite Negative Urine Bilirubin Negative Urine Urobilinogen Negative Ur Leukocyte Esterase Negative Nasal Screen MRSA (PCR) SARS-CoV-2, RNA, NAAT Blood Type Blood Type Recheck Antibody Screen Crossmatch 09/01/21 09/01/21 09/01/21 Unknown Unknown Unknown WBC 17.44 H RBC 2.80 L Hgb 9.3 L Hct 27.3 L MCV 97.5 MCH 33.2 MCHC 34.1 RDW Std Deviation 59.1 H RDW Coeff of Diane 16.7 H Plt Count 206 MPV 10.9 H Immature Gran % (Auto) 0.6 Neut % (Auto) 89.8 Lymph % (Auto) 5.6 [place] % (Auto) 3.8 Eos % (Auto) 0.1 Baso % (Auto) 0.1 Neut # (Auto) 15.69 H Lymph # (Auto) 0.97 L [place] # (Auto) 0.66 H Eos # (Auto) 0.01 Baso # (Auto) 0.01 Immature Gran # (Auto) 0.10 H Platelet Estimate Polychromasia Ovalocytes 1+ Echinocytes 1+ Acanthocytes (Spur) 1+ Peripher Smr Path Cons PT 16.7 H INR 1.6 H APTT 27.9 PTT Ratio 1.0 Fibrinogen Sodium 137 Potassium 3.8 Chloride 99 Carbon Dioxide 12 L Anion Gap 26 H BUN 39 H Creatinine 1.56 H Est Cr Clr Drug Dosing 61.1 Est GFR ( Amer) 56.7 Est GFR (Non-Af Amer) 48.9 BUN/Creatinine Ratio 25.0 H Glucose 191 H POC Glucose Lactate Calcium 8.8 Magnesium Total Bilirubin 4.6 H Direct Bilirubin AST 30 ALT 19 Alkaline Phosphatase 76 Troponin I High Sens 31.5 H Total Protein 6.8 Albumin 3.3 L Globulin 3.5 Albumin/Globulin Ratio 0.9 Lipase 20 Urine Color Urine Appearance Urine pH Ur Specific [place] Urine Protein Urine Glucose (UA) Urine Ketones Urine Blood Urine Nitrite Urine Bilirubin Urine Urobilinogen Ur Leukocyte Esterase Nasal Screen MRSA (PCR) SARS-CoV-2, RNA, NAAT Blood Type Blood Type Recheck Antibody Screen Crossmatch 09/02/21 09/02/21 09/02/21 00:03 05:56 05:56 WBC 9.76 RBC 2.59 L Hgb 8.4 L Hct 24.1 L MCV 93.1 MCH 32.4 MCHC 34.9 RDW Std Deviation 53.7 H RDW Coeff of Diane 15.9 H Plt Count 62 L D MPV 10.6 H Immature Gran % (Auto) 0.3 Neut % (Auto) 88.6 Lymph % (Auto) 9.1 [place] % (Auto) 2.0 Eos % (Auto) 0.0 Baso % (Auto) 0.0 Neut # (Auto) 8.64 H Lymph # (Auto) 0.89 L [place] # (Auto) 0.20 Eos # (Auto) 0.00 Baso # (Auto) 0.00 Immature Gran # (Auto) 0.03 H Platelet Estimate Decreased L Polychromasia 1+ Ovalocytes Echinocytes Acanthocytes (Spur) Peripher Smr Path Cons PT INR APTT PTT Ratio Fibrinogen Sodium 136 Potassium 5.3 H D Chloride 101 Carbon Dioxide 25 Anion Gap 10 BUN 39 H Creatinine 1.42 H Est Cr Clr Drug Dosing 61.9 Est GFR ( Amer) 63.5 Est GFR (Non-Af Amer) 54.8 BUN/Creatinine Ratio 27.5 H Glucose 158 H POC Glucose Lactate 7.4 H* Calcium 7.8 L Magnesium 1.8 Total Bilirubin 5.2 H Direct Bilirubin 1.5 H AST 33 ALT 18 Alkaline Phosphatase 54 Troponin I High Sens Total Protein 5.7 L Albumin 2.8 L Globulin Albumin/Globulin Ratio Lipase Urine Color Urine Appearance Urine pH Ur Specific [place] Urine Protein Urine Glucose (UA) Urine Ketones Urine Blood Urine Nitrite Urine Bilirubin Urine Urobilinogen Ur Leukocyte Esterase Nasal Screen MRSA (PCR) SARS-CoV-2, RNA, NAAT Blood Type Blood Type Recheck Antibody Screen Crossmatch 09/02/21 09/02/21 09/02/21 05:56 05:56 07:22 WBC 9.85 RBC 2.48 L Hgb 8.2 L Hct 23.4 L MCV 94.4 MCH 33.1 MCHC 35.0 RDW Std Deviation 53.7 H RDW Coeff of Diane 15.9 H Plt Count 57 L MPV 10.2 Immature Gran % (Auto) Neut % (Auto) Lymph % (Auto) [place] % (Auto) Eos % (Auto) Baso % (Auto) Neut # (Auto) Lymph # (Auto) [place] # (Auto) Eos # (Auto) Baso # (Auto) Immature Gran # (Auto) Platelet Estimate Decreased L Polychromasia Ovalocytes Echinocytes Acanthocytes (Spur) Peripher Smr Path Cons PT INR APTT PTT Ratio Fibrinogen Sodium Potassium Chloride Carbon Dioxide Anion Gap BUN Creatinine Est Cr Clr Drug Dosing Est GFR ( Amer) Est GFR (Non-Af Amer) BUN/Creatinine Ratio Glucose POC Glucose Lactate 3.2 H* Calcium Magnesium Total Bilirubin Cancelled Direct Bilirubin Cancelled AST Cancelled ALT Cancelled Alkaline Phosphatase Cancelled Troponin I High Sens Total Protein Cancelled Albumin Cancelled Globulin Albumin/Globulin Ratio Lipase Urine Color Urine Appearance Urine pH Ur Specific [place] Urine Protein Urine Glucose (UA) Urine Ketones Urine Blood Urine Nitrite Urine Bilirubin Urine Urobilinogen Ur Leukocyte Esterase Nasal Screen MRSA (PCR) SARS-CoV-2, RNA, NAAT Blood Type Blood Type Recheck Antibody Screen Crossmatch 09/02/21 09/02/21 07:49 07:49 WBC RBC Hgb Hct MCV MCH MCHC RDW Std Deviation RDW Coeff of Diane Plt Count MPV Immature Gran % (Auto) Neut % (Auto) Lymph % (Auto) [place] % (Auto) Eos % (Auto) Baso % (Auto) Neut # (Auto) Lymph # (Auto) [place] # (Auto) Eos # (Auto) Baso # (Auto) Immature Gran # (Auto) Platelet Estimate Polychromasia Ovalocytes Echinocytes Acanthocytes (Spur) Peripher Smr Path Cons Pending PT 15.3 H INR 1.5 H APTT PTT Ratio Fibrinogen Sodium Potassium Chloride Carbon Dioxide Anion Gap BUN Creatinine Est Cr Clr Drug Dosing Est GFR ( Amer) Est GFR (Non-Af Amer) BUN/Creatinine Ratio Glucose POC Glucose Lactate Calcium Magnesium Total Bilirubin Direct Bilirubin AST ALT Alkaline Phosphatase Troponin I High Sens Total Protein Albumin Globulin Albumin/Globulin Ratio Lipase Urine Color Urine Appearance Urine pH Ur Specific [place] Urine Protein Urine Glucose (UA) Urine Ketones Urine Blood Urine Nitrite Urine Bilirubin Urine Urobilinogen Ur Leukocyte Esterase Nasal Screen MRSA (PCR) SARS-CoV-2, RNA, NAAT Blood Type Blood Type Recheck Antibody Screen Crossmatch Diagnostic Findings Chest X-Ray 09/01/21 17:48 XR chest 1V portable CLINICAL HISTORY: GI bleed. Evaluate cardiopulmonary status. COMPARISON STUDY: 11/13/2019 TECHNIQUE: 1 view of the chest FINDINGS: Single frontal view of the chest demonstrates the cardiomediastinal silhouette to be within normal limits. The lungs are clear of alveolar opacities. There is no evidence for pleural effusion. There is no evidence for vascular congestion. There is no acute osseous pathology. IMPRESSION: 1. No acute cardiopulmonary disease. ACT 112: Negative or not required by law. Electronically signed by: Humberto Callejas M.D. 09/01/2021 7:03 PM Abdomen/Pelvis CT 09/01/21 18:36 CT abd pelvis IV con only CLINICAL HISTORY: GI bleed. Reported vomiting of blood COMPARISON STUDY: 11/13/2019 CT DOSE: 515.48 mGy.cm TECHNIQUE: Standard CT of the Abdomen and Pelvis was performed with IV contrast. A dose lowering technique was utilized adhering to the principles of ALARA. Contrast Volume: Optiray 320, 92 ml. The patient did not receive oral contrast . FINDINGS: Lung base: There has been interval development of a small right pleural effusion. Abdominal cavity and bowel: There is diffuse mucosal thickening present along the course of the entire colon from the cecum to the sigmoid colon. Mild pericolonic inflammatory changes are present throughout its course as well. Findings are characteristic of an infectious versus inflammatory colitis. There is no evidence for diverticula or diverticulitis. The stomach is grossly distended with liquid and food stuff. The fluid demonstrates increased attenuation most characteristic of active bleeding. The findings are characteristic of marked gastritis. Underlying ulcer cannot be excluded. The small bowel loops are normally placed within the abdomen and pelvis without evidence for dilatation or obstruction. There is a normal appendix in the right lower quadrant. There is no evidence for free air. There are now extensive gastric hilar varices. There is no gross ascites. Liver: The liver is again enlarged with a cirrhotic morphology. There is no evidence for enhancing mass lesion. Spleen: There is homogeneous attenuation of the splenic parenchyma. There is no enhancing mass lesion. There is now marked splenomegaly and splenic hilar varices. Pancreas: There is homogeneous attenuation of the pancreatic parenchyma. There is no evidence for mass lesion or peripancreatic fluid collection. Gall Bladder: The gallbladder is well distended with no evidence for intraluminal calculi, wall thickening or pericholecystic edema. Adrenal glands: The adrenal glands are normal in size and attenuation. There is no evidence for enhancing mass lesion. Kidneys: There is homogeneous attenuation of the renal parenchyma bilaterally. There is no evidence for renal calculus or hydronephrosis. There is no evidence for enhancing mass. Bladder: The bladder is within normal limits with no evidence for focal mass, calculus or diverticulum. : There is no evidence for pelvic mass or adenopathy. There is no evidence for pelvic ascites. Vasculature: There is no evidence for aneurysmal dilatation of the abdominal aorta. Atherosclerotic calcification is present. Osseous structures: There is no acute osseous pathology. Degenerative changes are seen within the spine. IMPRESSION: 1. Small right pleural effusion. 2. Diffuse mucosal thickening of the colon with pericolonic inflammatory changes characteristic of an infectious or inflammatory colitis. There is no evidence for diverticula or diverticulitis. 3. Marked distention of the stomach with liquid and food stuff. Increased attenuation fluid is present characteristic of active bleeding. The findings are characteristic of gastritis. Underlying ulcer cannot be excluded. 4. Cirrhosis of the liver, marked splenomegaly and marked gastric hilar and splenic varices. ACT 112: Negative or not required by law. Electronically signed by: Humberto Callejas M.D. 09/01/2021 7:32 PM KUB X-Ray 09/01/21 21:08 KUB HISTORY: Status post placement of an enteric tube placment of OGT COMPARISON: CT abdomen and pelvis of same day FINDINGS: Status post placement of an enteric tube with distal tip projected over the gastric body. Small right pleural effusion. Nonobstructive bowel gas pattern. No renal calculi. No ureteral calculi. No pneumoperitoneum or pneumatosis. No fracture. IMPRESSION: Distal tip of enteric tube projects over the gastric body. ACT 112: Negative or not required by law. The above report was generated using voice recognition software. It may contain grammatical, syntax or spelling errors. Electronically signed by: Jason Rodríguez M.D. 09/02/2021 6:39 AM (1) Esophageal varices Esophageal varices bleeding: with bleeding Esophageal varices type: unspecified type Qualified Code(s): I85.01 - Esophageal varices with bleeding
[2021-09-02] MEDS ORDERED: CALCIUM GLUCONATE 10% 2,000 MG in DEXTROSE 5% 50 ML IV ONE (09:43)
[2021-09-02] MEDS ORDERED: STAT IV STA (09:43)
[2021-09-02 11:09] LABS: Hematocrit (blood only) 23.6 % (42-52); Hemoglobin 8.4 g/dL (14.0-18.0); Mean Corpuscular Hemoglobin 32.8 pg (25-34); Mean Corpuscular Hgb Conc 35.6 g/dL (32-36); Mean Corpuscular Volume 92.2 fL (80-100); RDW Coefficient of Variation 16.4 % (11.5-14.5); RDW Standard Deviation 54.1 fL (36.4-46.3); Red Blood Count 2.56 M/uL (4.7-6.1); White Blood Count 12.33 K/uL (4.8-10.8)
[2021-09-02] MEDS: PANTOprazole 40 MG in SYRINGE 0 ML IV SCH ×2 (11:11→22:00)
--- NOTE | 2021-09-02 11:21 | Discharge Summary ---
Date of Service September 02, 2021 Admission HPI Per Admitting Provider 56 YOM with medical history of : Cirrhosis secondary to alcohol abuse, patient has been sober for > 1 year. Patient previously followed with [facility] for GI for workup for liver transplant. Patient has not had a EGD yet, but had Colonoscopy performed on . Patient comes in to the EMD today for onset of abdominal pain with vomiting of blood at ~ 0300 this morning and passing of some black stools as the day went on. The patient came to the EMD today via EMS. In the EMD the patient had routine blood work performed, type and cross performed, and CT of the abdomen and pelvis performed. His HGB level is 9.3- no recent level for comparison. He is complaining as well as severe abdominal pain from the umbilicus to epigastrium, but abdomen is soft. His CT scan is concerning for stomach distention with liquid and food stuff, likely consistent with active bleeding and gastritis without being able to exclude an ulceration, as well as marked gastric hilar and splenic varices. Dr. Fay has been in contact with multiple times with review of the imaging as well. Patient is currently on Protonix drip and bolus and will add octreotide on. Patient will be admitted to the ICU, we have multple units of blood products that are on hold for the patient. Will Keep NPO, recommendations from GI to place NGT, will place bah catheter. COVID test on admission is: NEGATIVE Admission Exam Per Admitting Provider General: awake, alert, Head: Normocephalic, atraumatic ENT: PERRL, EOMI, no pharyngeal exudate, mucous membranes dry Neuro: AAO x 3, speech clear and appropriate, strength intact bilaterally 5/5, sensation intact and equal all extremities and dermatomes, no pronator drift Chest: equal rise and fall of the chest, no accessory muscle use, no heaves or thrills, Clear to auscultation, on room air, Cardiac: Regular rate and rhythm, telemetry reviewed-NSR no ectopy, skin warm dry, cap refill 3 seconds, peripheral pulses +2 no JVD, no murmur, peripheral pulses strong GI: hyperactive bowel sounds, tenderness with deep palpation to left lower quad, epgastrum sof t and no pain with deep palpation : Spontaneously voiding, no pain, no CVA tenderness,- place bah Extremities: Normal inspection, no peripheral edema or erythema, calfs nontender to palpation Psych: Normal mood and affect Skin: no rash or erythema Principal Diagnosis upper GI bleed, gastric varices Discharge Exam General: A&Ox3. NAD. Cooperative. Conversational. HEENT: Atraumatic, normocephalic. EOMI Pulm: CTAB, very slightly diminished air entry. -wheezes, -rales, -rhonchi. Symmetrical chest rise. No respiratory distress. Cardiac: RRR, -mrg. No LE edema. Abdominal: Nontender, nondistended, soft. Integ: Inner eyelids mildly pale. Discharge Data Allergies Allergy/AdvReac Type Severity Reaction Status Date / Time No Known Allergies Allergy Verified 09/01/21 20:04 Consultations 09/01/21 18:40 Consult Gastroenterology Routine 09/01/21 19:11 ED Decision to Admit Stat 09/01/21 19:22 Consult [employer] Routine 09/01/21 21:01 Consult Gastroenterology Routine 09/02/21 01:42 Burn CD for patient Routine Procedures Performed Operation Date: 09/01/21 21:10 Actual Procedures p Esophagogastroduodenoscopy(Not Applicable) - Aidan Fay Impression: - Z-line regular, 49 cm from the incisors - Normal esophagus - Gastric varices, with stigmnta of recent bleeding. - Fresh blood noted in fundus of stomach near varices. All the fresh blood removed and no active bleeding noted. Coffee ground material in fundus and scattered throughout rest of stomach could interfere with small or flat lesion visualization - Normal examined duodenum. The examination was otherwise normal. - No specimens collected. Ordered Studies Cardiac Enzymes 09/01/21 09/02/21 09/02/21 Range/Units Unknown 05:56 05:56 AST 30 33 Cancelled (13-39) U/L Troponin I High Sens 31.5 H (0-20) pg/ml Coagulation 09/01/21 09/02/21 Range/Units Unknown 07:49 PT 16.7 H 15.3 H (9.0-12.0) Seconds APTT 27.9 (21.0-31.0) Seconds CBC 09/01/21 09/01/21 09/02/21 Range/Units 21:28 Unknown 05:56 WBC 17.44 H 9.76 (4.8-10.8) K/uL RBC 2.80 L 2.59 L (4.7-6.1) M/uL Hgb 7.8 L 9.3 L 8.4 L (14.0-18.0) g/dL Hct 27.3 L 24.1 L (42-52) % Plt Count 206 62 L D (130-400) K/uL Neut # (Auto) 15.69 H 8.64 H (1.4-6.5) K/uL Lymph # (Auto) 0.97 L 0.89 L (1.2-3.4) K/uL [place] # (Auto) 0.66 H 0.20 (0.11-0.59) K/uL Eos # (Auto) 0.01 0.00 (0-0.5) K/uL Baso # (Auto) 0.01 0.00 (0-0.2) K/uL 09/02/21 09/02/21 Range/Units 07:22 10:09 WBC 9.85 12.33 H (4.8-10.8) K/uL RBC 2.48 L 2.56 L (4.7-6.1) M/uL Hgb 8.2 L 8.4 L (14.0-18.0) g/dL Hct 23.4 L 23.6 L (42-52) % Plt Count 57 L 67 L (130-400) K/uL Neut # (Auto) (1.4-6.5) K/uL Lymph # (Auto) (1.2-3.4) K/uL [place] # (Auto) (0.11-0.59) K/uL Eos # (Auto) (0-0.5) K/uL Baso # (Auto) (0-0.2) K/uL Comprehensive Metabolic Panel 09/01/21 09/02/21 09/02/21 Range/Units Unknown 05:56 05:56 Sodium 137 136 (136-145) mmol/L Potassium 3.8 5.3 H D (3.5-5.1) mmol/L Chloride 99 101 (98-107) mmol/L Carbon Dioxide 12 L 25 (21-32) mmol/L BUN 39 H 39 H (6-23) mg/dl Creatinine 1.56 H 1.42 H (0.6-1.4) mg/dl Glucose 191 H 158 H (70-99(Fasting)) mg/dl Calcium 8.8 7.8 L (8.5-10.1) mg/dl Direct Bilirubin 1.5 H Cancelled (0-0.2) mg/dl AST 30 33 Cancelled (13-39) U/L ALT 19 18 Cancelled (7-52) U/L Alkaline Phosphatase 76 54 Cancelled (34-104) U/L Total Protein 6.8 5.7 L Cancelled (6.0-8.3) gm/dl Albumin 3.3 L 2.8 L Cancelled (3.4-5.0) gm/dl 09/02/21 Range/Units 10:09 Sodium 135 L (136-145) mmol/L Potassium 4.6 (3.5-5.1) mmol/L Chloride 104 (98-107) mmol/L Carbon Dioxide 25 (21-32) mmol/L BUN 37 H (6-23) mg/dl Creatinine 1.35 (0.6-1.4) mg/dl Glucose 158 H (70-99(Fasting)) mg/dl Calcium 8.2 L (8.5-10.1) mg/dl Direct Bilirubin (0-0.2) mg/dl AST (13-39) U/L ALT (7-52) U/L Alkaline Phosphatase (34-104) U/L Total Protein (6.0-8.3) gm/dl Albumin (3.4-5.0) gm/dl Intake and Output 09/02/21 09/02/21 09/02/21 06:59 14:59 22:59 Intake Total 1134.945 / 2405.445 188.298 / 188.298 Output Total 500 / 900 825 / 825 Balance 634.945 / 1505.445 -636.702 / -636.702 Intake: IV 381.945 / 1652.445 188.298 / 188.298 Magnesium Sulfate / D5w 1 gm In 90.833 / 90.833 100 ml @ 50 mls/hr IV Q2H [facility] Rx#:[id number] Octreotide Acetate 500 mcg In 78.612 / 78.612 97.465 / 97.465 Dextrose 5% 100 ml @ 50 MCG/HR 10.05 mls/hr IV .Q10H [facility] Rx#: [id number] PANTOprazole 40 mg In Dextrose 188.333 / 188.333 5% 100 ml @ 8 MG/HR 20 mls/hr IV Q5H [facility] Rx#:[id number] Piperacillin/Tazobactam 3.375 115 / 115 gm In Dextrose 5% 100 ml @ 28. 75 mls/hr IV Q8H [facility] Rx#: [id number] Oral 0 / 0 0 / 0 Intake (Blood Product) Amt 753 / 753 Cryoprecipitate Unit 110 / 110 [id number] Fresh Frozen Plasma Unit 333 / 333 [id number] Packed Cells, Leukoreduced 310 / 310 Unit [id number] Output: Urine Amount (Catheter) 450 / 450 825 / 825 Bah/Indwelling 450 / 450 825 / 825 Gastric Drainage 50 / 400 Right Nare 50 / 400 # Bowel Movements 0 / 0 Other: Weight 86.9 kg Weight Measurement Method Built in [facility] Chest X-Ray 09/01/21 17:48 XR chest 1V portable CLINICAL HISTORY: GI bleed. Evaluate cardiopulmonary status. COMPARISON STUDY: 11/13/2019 TECHNIQUE: 1 view of the chest FINDINGS: Single frontal view of the chest demonstrates the cardiomediastinal silhouette to be within normal limits. The lungs are clear of alveolar opacities. There is no evidence for pleural effusion. There is no evidence for vascular congestion. There is no acute osseous pathology. IMPRESSION: 1. No acute cardiopulmonary disease. ACT 112: Negative or not required by law. Electronically signed by: Humberto Callejas M.D. 09/01/2021 7:03 PM Abdomen/Pelvis CT 09/01/21 18:36 CT abd pelvis IV con only CLINICAL HISTORY: GI bleed. Reported vomiting of blood COMPARISON STUDY: 11/13/2019 CT DOSE: 515.48 mGy.cm TECHNIQUE: Standard CT of the Abdomen and Pelvis was performed with IV contrast. A dose lowering technique was utilized adhering to the principles of ALARA. Contrast Volume: Optiray 320, 92 ml. The patient did not receive oral contrast. FINDINGS: Lung base: There has been interval development of a small right pleural effusion. Abdominal cavity and bowel: There is diffuse mucosal thickening present along the course of the entire colon from the cecum to the sigmoid colon. Mild pericolonic inflammatory changes are present throughout its course as well. Findings are characteristic of an infectious versus inflammatory colitis. There is no evidence for diverticula or diverticulitis. The stomach is grossly distended with liquid and food stuff. The fluid demonstrates increased attenuation most characteristic of active bleeding. The findings are characteristic of marked gastritis. Underlying ulcer cannot be excluded. The small bowel loops are normally placed within the abdomen and pelvis without evidence for dilatation or obstruction. There is a normal appendix in the right lower quadrant. There is no evidence for free air. There are now extensive gastric hilar varices. There is no gross ascites. Liver: The liver is again enlarged with a cirrhotic morphology. There is no evidence for enhancing mass lesion. Spleen: There is homogeneous attenuation of the splenic parenchyma. There is no enhancing mass lesion. There is now marked splenomegaly and splenic hilar varices. Pancreas: There is homogeneous attenuation of the pancreatic parenchyma. There is no evidence for mass lesion or peripancreatic fluid collection. Gall Bladder: The gallbladder is well distended with no evidence for intraluminal calculi, wall thickening or pericholecystic edema. Adrenal glands: The adrenal glands are normal in size and attenuation. There is no evidence for enhancing mass lesion. Kidneys: There is homogeneous attenuation of the renal parenchyma bilaterally. There is no evidence for renal calculus or hydronephrosis. There is no evidence for enhancing mass. Bladder: The bladder is within normal limits with no evidence for focal mass, calculus or diverticulum. : There is no evidence for pelvic mass or adenopathy. There is no evidence for pelvic ascites. Vasculature: There is no evidence for aneurysmal dilatation of the abdominal aorta. Atherosclerotic calcification is present. Osseous structures: There is no acute osseous pathology. Degenerative changes are seen within the spine. IMPRESSION: 1. Small right pleural effusion. 2. Diffuse mucosal thickening of the colon with pericolonic inflammatory changes characteristic of an infectious or inflammatory colitis. There is no evidence for diverticula or diverticulitis. 3. Marked distention of the stomach with liquid and food stuff. Increased attenuation fluid is present characteristic of active bleeding. The findings are characteristic of gastritis. Underlying ulcer cannot be excluded. 4. Cirrhosis of the liver, marked splenomegaly and marked gastric hilar and splenic varices. ACT 112: Negative or not required by law. Electronically signed by: Humberto Callejas M.D. 09/01/2021 7:32 PM KUB X-Ray 06/19/22 21:08 KUB HISTORY: Status post placement of an enteric tube placment of OGT COMPARISON: CT abdomen and pelvis of same day FINDINGS: Status post placement of an enteric tube with distal tip projected over the gastric body. Small right pleural effusion. Nonobstructive bowel gas pattern. No renal calculi. No ureteral calculi. No pneumoperitoneum or pneumatosis. No fracture. IMPRESSION: Distal tip of enteric tube projects over the gastric body. ACT 112: Negative or not required by law. The above report was generated using voice recognition software. It may contain grammatical, syntax or spelling errors. Electronically signed by: Jason Rodríguez M.D. 09/02/2021 6:39 AM Hospital Course (1) Upper gastrointestinal hemorrhage: 56 year old male w/ PMHx of alcoholic cirrhosis (02/2021 baseline MELD 14, child gore class B), macrocytic anemia, thrombocytopenia, ascites, and splenomegaly who presents w/ a day of hematemesis and large amounts of melena. He was admitted to the ICU for UGIB and EGD revealed gastric varices w/ stigmata of recent bleeding and coffee ground emesis. No esophageal varices. Last etoh use >1 year ago. As outpatient planning to pursue liver transplant eval. Transfer to [facility] for high risk of rebleed and eval for procedural intervention of gastric varices. Room 6134. Accepting physician: Dr. Mcintyre (hepatology). Level of care: IMC. Transport via ACLS. Upper gastrointestinal hemorrhage: Likely active UGIB that precipitated admission; No active bleeding at time of EGD. - EGD noted gastric varices w/ stigmata of recent bleed. Coffee ground emesis noted. No esophageal varices. - S/p Protonix bolus and drip, transitioned to 40mg BID bolus - Octreotide bolus and drip - Zosyn planned for de-escalation to Rocephin - s/p NG tube, since removed - Hb 7.8 at admission ->9.3-> 8.2-8.4 on three rechecks. Baseline >10 per outpatient labs 07/2021. - He is s/p 2u prbc, 1u ffp, 1u cryoprecipitate, and 5mg IV vitamin K. Not on blood thinners. - INR 1.6 at admission, 1.5 on repeat. Lactate 13.1 at admission, downtrended to 3.2. t bili 4.6 and 5.2 this admission. t bili 1.5. ast, alt, alk phos wnl. - plts 206 at admission ->60s - Blatchford score 12 at admission Cirrhosis: MELD 22, compared to MELD 14 (per outpatient 02/2021 labs) Child GORE 8 without encephalopathy home regimen diuretics of spironolactone and lasix held - blood cultures (09/02/21 0003) pending, no growth to date) - Home furosemide and spironolactone held. Patient is currently NPO. Patient was full code this admission. (2) Cirrhosis: (3) Gastric varices: (4) Renal insufficiency: Total Time Total Time Spent Total Time Spent (In Minutes): <30 Discharge Plan Discharge Items Patient Disposition: Transfer Acute Care Hospital Reason For Visit: UGIB-CIRRHOSIS Discharge Diagnosis: UGIB, gastric varices Activity: As commented below Activity Comment: Per discharge institution Non-emergency contact: Primary Care Provider Call non-emergency contact if: your symptoms worsen Follow-up/Referrals: PCP,NO [Primary Care Provider] - Diet: Other - See Diet Comment Diet Comment: Currently NPO Addtl Attending Provider Instructions: 56 year old male w/ PMHx of alcoholic cirrhosis (02/2021 baseline MELD 14, child gore class B), macrocytic anemia, thrombocytopenia, ascites, and splenomegaly who presents w/ a day of hematemesis and large amounts of melena. He was admitted to the ICU for UGIB and EGD revealed gastric varices w/ stigmata of recent bleeding and coffee ground emesis. No esophageal varices. Last etoh use >1 year ago. As outpatient planning to pursue liver transplant eval. Transfer to [facility] for high risk of rebleed and eval for procedural intervention of gastric varices. Room 6134. Accepting physician: Dr. Mcintyre (hepatology). Level of care: [facility]. Transport via ACLS. Upper gastrointestinal hemorrhage: Likely active UGIB that precipitated admission; No active bleeding at time of EGD. - EGD noted gastric varices w/ stigmata of recent bleed. Coffee ground emesis noted. No esophageal varices. - S/p Protonix bolus and drip, transitioned to 40mg BID bolus - Octreotide bolus and drip. Will continue on Octeotride drip during EMS transport. - Zosyn planned for de-escalation to Rocephin - s/p NG tube, since removed - Hb 7.8 at admission ->9.3-> 8.2-8.4 on three rechecks. Baseline >10 per outpatient labs 07/2021. - He is s/p 2u prbc, 1u ffp, 1u cryoprecipitate, and 5mg IV vitamin K. Not on blood thinners. - INR 1.6 at admission, 1.5 on repeat. Lactate 13.1 at admission, downtrended to 3.2. t bili 4.6 and 5.2 this admission. t bili 1.5. ast, alt, alk phos wnl. - plts 206 at admission ->60s - Blatchford score 12 at admission Cirrhosis: MELD 22, compared to MELD 14 (per outpatient 02/2021 labs) Child GORE 8 without encephalopathy home regimen diuretics of spironolactone and lasix held - blood cultures (09/02/21 0003) pending, no growth to date) - Home furosemide and spironolactone held. Patient is currently NPO. Patient was full code this admission. Pending Studies at Discharge: No Stand-Alone Forms: My [facility] Skilled Items Patient informed of condition?: Yes DNR: No Discharge Level of Care: Other Communicable Disease: No Discharge Prognosis: Stable Lines: Peripheral IV Urinary Catheter: Yes Medications and DC Order Prescriptions: Discontinued furosemide 40 mg tablet 40 mg PO DAILY RF: 0 spironolactone 100 mg tablet 100 mg PO DAILY RF: 0 ibuprofen [Advil] 200 mg Tablet 600 - 800 mg PO Q8 PRN (Reason: Pain) RF: 0 Discharge Orders: Discharge Order (Routine); Ordered 09/02/21 Ordered By: Jayjay Jordan Admission Data Admit Date/Time: 09/01/21 19:03 Attending Provider: Fidel Brown Admit Provider: Fidel Brown Primary Care Provider: PCP,NO Other Providers: Aidan Fay ; Fidel Brown ; Aidan Hernandez Supervising Physician Co-Signing Physician Notes Resident Physician Supervision Note: I interviewed and examined the patient. Discussed with Dr. Jordan and agree with findings and plan as documented in the note. Any exceptions or clarifications are listed here: Patient was seen separately he was in stable condition and did receive blood transfusions overnight. He was not having any significant abdominal pain nor did he have any diarrhea or bowel movement since 1 day prior. Vital signs were reviewed and are stable Hemoglobin is 8.4 status posttransfusion of 2 units of blood 1 units of fresh frozen plasma and 1 unit cryoprecipitate Examination his heart is regular lungs are clear abdomen NABS soft mildly tender in the epigastrium. He is anicteric Urgent EGD performed 619 shows gastric varices with stigmata of recent bleeding, patient is on [place] [employer] tied drip proton pump inhibitor and recommend transfer to tertiary care center for definitive treatment of the gastric varices. Patient accepted in transfer to [facility] subsequently discharged Pro time to prepare discharge summary including my visits and the residents time including transferred coordination was greater than 30 minutes Documented By: Fidel Brown MD Resident Activity Tracking Resident Involvement: Resident Care Provided Care Provided: Adult Hospital Medicine
[2021-09-02 11:22] LABS: Mean Platelet Volume 10.8 fL (7.4-10.4); Platelet Count 67 K/uL (130-400)
[2021-09-02 11:43] LABS: BUN Creatinine Ratio 27.4 (10-20); Calcium 8.2 mg/dl (8.5-10.1); Creatinine Clr Calc Pharmacy 65.1 ml/min; Est GFR (African American) 67.5 ml/min; Est GFR (Non-African American) 58.3 ml/min; Potassium 4.6 mmol/L (3.5-5.1)
--- NOTE | 2021-09-02 14:06 | Electrocardiogram Report ---
Test Reason : Blood Pressure : / mmHG Vent. Rate : 107 BPM Atrial Rate : 107 BPM P-R Int : 146 ms QRS Dur : 076 ms QT Int : 372 ms P-R-T Axes : 077 049 072 degrees QTc Int : 496 ms Sinus tachycardia Nonspecific ST abnormality Abnormal ECG When compared with ECG of 13-NOV-2019 22:10, Vent. rate has increased BY 37 BPM QT has lengthened Confirmed by Billy Mensah ([id number]) on 09/02/2021 2:06:04 PM Referred By: REFERRED SELF Confirmed By:Billy Mensah
--- NOTE | 2021-09-02 14:13 | Electrocardiogram Report ---
Test Reason : Blood Pressure : / mmHG Vent. Rate : 062 BPM Atrial Rate : 062 BPM P-R Int : 130 ms QRS Dur : 084 ms QT Int : 450 ms P-R-T Axes : 000 032 039 degrees QTc Int : 456 ms Normal sinus rhythm Normal ECG When compared with ECG of 01-SEP-2021 17:51, (unconfirmed) Vent. rate has decreased BY [address] no longer depressed in Inferior leads ST no longer depressed in Anterior leads Nonspecific T wave abnormality now evident in Inferior leads Confirmed by Billy Mensah ([id number]) on 09/02/2021 2:12:50 PM Referred By: REFERRED SELF Confirmed By:Billy Mensah
--- NOTE | 2021-09-02 15:25 | Billing Data ---
Date of Service September 02, 2021 Coding Level of Care Code D/C DAY MANAGEMENT >30 MINS
[2021-09-02] MEDS ORDERED: cefTRIAXone SODIUM 2,000 MG in DEXTROSE 5% 50 ML IV SCH (16:00)
[2021-09-02 19:55] LABS: Hematocrit (blood only) 24.3 % (42-52); Hemoglobin 8.6 g/dL (14.0-18.0); Mean Corpuscular Hgb Conc 35.4 g/dL (32-36); Mean Corpuscular Volume 93.1 fL (80-100); RDW Coefficient of Variation 16.2 % (11.5-14.5); RDW Standard Deviation 54.1 fL (36.4-46.3); Red Blood Count 2.61 M/uL (4.7-6.1); White Blood Count 15.35 K/uL (4.8-10.8)
[2021-09-02 19:58] LABS: Mean Platelet Volume 10.6 fL (7.4-10.4); Platelet Count 62 K/uL (130-400)
== END 2021-09-02 23:39 | disposition short-term general hospital (02) | DRG 300 ==
LOC: ED 17:41 → 1E 19:03